=== PATIENT | male | born 1970 | race Caucasian/White ===

== ENCOUNTER 2016-10-19 16:38 | Inpatient (IN) | payer OTHER ==
[~2016-10-19] VITALS: Ht 177.8 cm; Wt 105.4 kg
[~2016-10-19 16:38] MED LIST: ATORVASTATIN CA40 MG PO; COQ1050 MG PO; IMODIUM A-D2 MG PO; NEXIUM20 M1 PO
[2016-10-22] VITALS (9 sets, daily range): BP systolic 132–148; BP diastolic 74–90
--- NOTE | 2016-10-22 13:55 | OPERATIVE REPORT ---
DATE OF SURGERY: 10/22/2016 SURGEON: Ector Blackwell III, MD CHEESEMAKING LABORER: Dr. Singh PREOPERATIVE DIAGNOSIS: 1. Eroded Lap-Band POSTOPERATIVE DIAGNOSIS: 1. Eroded Lap-Band PROCEDURE PERFORMED: 1. Laparoscopic removal of eroded Lap-Band and closure of gastrotomy x2 ANESTHESIA: General endotracheal. INDICATIONS: The patient is a 46-year-old male who approximately 10 years ago underwent a laparoscopic Lap-Band placement for bariatric surgery in [place]. In the last year or so, he started developing some symptoms consistent with severe reflux and heartburn. Upper GI endoscopy revealed eroded band within the gastric lumen, unable to remove endoscopically. He was scheduled for removal of the band laparoscopically. SURGICAL FINDINGS: The Silastic tubing was traced to the omentum, where it tunneled beneath the omentum and posteriorly and to the left of the stomach. It appeared that the upper portion of the stomach had been folded up over the band itself and was firmly adherent to the diaphragm and the posteroinferior lobe of the left lobe of the liver. It appeared also that there were 2 gastrotomy sites, secondary to the erosion of the band: one right anteroposteriorly, the other one superiorly and in the left anterior. SURGICAL TECHNIQUE: The patient was brought to the operating room and placed in the dorsal supine position, where he underwent general endotracheal anesthesia by the anesthesiology department. After proper anesthesia had taken effect, a Faustin catheter was placed to decompress the bladder. An orogastric tube was placed to decompress the stomach. The patient was placed in low lithotomy position. His abdomen prepped and draped in a sterile fashion. A supraumbilical incision was made and carried down through skin and subcutaneous tissue. A Veress needle was inserted through this site, into the abdominal cavity, and after ascertaining its appropriate position with suction irrigation, pneumoperitoneum obtained using CO2 insufflation to approximately 14 -15 mmHg pressure. Once this pressure was reached, the Veress needle was removed and replaced with a 10 mm trocar. The trocar was removed, leaving the sleeve behind, through which a laparoscopic video camera was introduced into the abdominal cavity. Under direct visualization, a self-retaining liver retractor was placed in the subxiphoid region. It entered the abdominal cavity under direct visualization. It was placed beneath the left lobe of the liver and the left lobe of the liver was retracted cephalad. Under direct visualization, a separate 10 mm trocar was placed in the left lateral anterior abdominal wall. Two 10 mm trocars were placed in the epigastric region, approximately 1 handbreadth apart. Each entered the abdominal cavity under direct visualization. The trocars were removed, leaving the sleeves behind, through which laparoscopic instrumentation was introduced in the abdominal cavity. The Silastic tubing was identified and traced to the portion of the gastrocolic ligament. This was traced up cephalad using the Thunderbeat. We were able to identify eventually the eroded band and the buckle. In attempting to mobilize the stomach, we were able to identify the band that had eroded through on the right as well, along the upper portion of the lesser curvature. This was firmly adherent to the diaphragm, probably secondary to earlier rolling of the stomach to protect the band. Our attention was turned to the buckle, which were able to identify. The buckle was cut and the Lap-Band transected, and the Lap-Band was withdrawn from the gastric lumen intact. The 2 sites of the gastrotomy were closed using [id number] Polysorb suture, using the EndoStitch and intracorporeal knot tying. Once both gastrotomies were closed, the orogastric tube was removed and replaced with a nasogastric tube. An upper GI endoscope was then passed down the patient's posterior pharynx and followed the tubing down into the abdomen. No gross evidence of leak was encountered. The scope was withdrawn. The omentum was brought up over our repair site and secured to the upper portion of the stomach and the diaphragm using the EndoStitch, using extracorporeal knot tying, doing a modified Lul patch over our suture line. The band and tubing were removed through one of our port sites, in the right upper quadrant, and handed off the field. Hemostasis was assured. The pneumoperitoneum was released. All trocars were removed from the abdominal cavity and all trocar sites approximated using 4-0 subdermal Polysorb and Steri-Strips. The port site was infiltrated using local anesthetic. A curvilinear incision was made, carried down through skin and subcutaneous tissue. This was dissected down in the subcutaneous tissue. The capsule incised. The port reservoir was identified and removed and handed off the field. The wound was irrigated. Hemostasis assured. The skin approximated using running 4-0 subdermal Polysorb and Steri-Strips. A sterile pressure occlusive dressing was placed over each site. The patient tolerated the procedure well. The patient was extubated and transferred to the recovery room in stable condition. There were no intraoperative or anesthetic complications.
[2016-10-23] VITALS (10 sets, daily range): BP systolic 137–156; BP diastolic 20–95
--- NOTE | 2016-10-23 07:28 | DIAGNOSTIC IMAGING REPORT ---
PROCEDURE: XR ABDOMEN 1 VIEW INDICATION: POST OP LAPROSCOPIC REMOVAL ERODED LAP BAND TECHNIQUE: AP supine view. COMPARISON: None. FINDINGS: Bowel gas pattern is normal. NG tube in place. No masses, free air or unusual calcifications. Cholecystectomy. Small left basilar infiltrate/atelectasis. Osseous structures are unremarkable. IMPRESSION: 1. NG tube in satisfactory position 2. Nonspecific bowel gas pattern 3. Small left basilar infiltrate/atelectasis
--- NOTE | 2016-10-23 14:34 | DIAGNOSTIC IMAGING REPORT ---
PROCEDURE: CT ABD/PELVIS WITH CONTRAST CLINICAL INDICATION: Lab erosion, follow-up TECHNIQUE: 125 ml of Isovue 300 were injected intravenously and axial images were obtained of the entire abdomen and pelvis with sagittal and coronal reformations. 180 ml of gastrographin via the NG tube. COMPARISON: Upright abdomen 10/23/2016 FINDINGS: ABDOMEN: NG tube in satisfactory position with contrast in the stomach through the third portion of the duodenum, without evidence of a leak. There is wall thickening of the gastric cardia. There is subcutaneous air in the left lower quadrant and umbilicus corresponding to surgical ports. There is also midline subcutaneous air in the ventral wall. Small postoperative pneumoperitoneum and small fluid collection in both pericolic gutters and around the spleen. Cholecystectomy. Liver, pancreas, spleen, adrenal glands and kidneys are normal. Mild atherosclerosis of the aorta. Mild dilation of proximal small bowel suggestive of an ileus. Moderate left and mild right basilar consolidation with air bronchograms suggestive of pneumonia versus atelectasis. There is a small left pleural effusion. PELVIS: Appendix not visualized but no evidence of acute appendicitis. Fluid in the sigmoid colon. Normal prostate and bladder. Small amount of free fluid in the pelvis. No suspicious osseous lesions. IMPRESSION: 1. Marked gastric cardia wall thickening but no evidence of perforation 2. Small postop pneumoperitoneum and ascites 3. NG tube in satisfactory position 4. Cholecystectomy 5. Moderate left and mild right basilar pneumonia versus atelectasis with small left pleural effusion 6. Results discussed with Dr. Blackwell. All CT scans at this facility use dose modulation, iterative reconstruction, and/or weight-based dosing when appropriate to reduce radiation dose to as low as reasonably achievable.
--- NOTE | 2016-10-23 23:40 | DIAGNOSTIC IMAGING REPORT ---
PROCEDURE: XR CHEST 1 VIEW INDICATION: TACHYCARDIA TECHNIQUE: Portable AP view 11:17 p.m. COMPARISON: Abdomen 10/23/2016 FINDINGS: Poor inspiration. Moderate retrocardiac consolidation with progression. Small left pleural effusion. Right lung is clear. Heart and mediastinum are normal. Thorax is normal. IMPRESSION: 1. Significant progression of retrocardiac pneumonia/postoperative atelectasis 2. Small left pleural effusion 3. Results called to the floor
[2016-10-24 02:42] VITALS: BP 148/79
[2016-10-24 07:10] VITALS: BP 144/92
--- NOTE | 2016-10-24 08:12 | DIAGNOSTIC IMAGING REPORT ---
PROCEDURE: XR CHEST 2 VIEW INDICATION: Status post removal of laparoscopic gastric band. Decreased O2 sats. Follow-up effusion. TECHNIQUE: PA and lateral views. COMPARISON: Compared to chest x-ray and 10/23/2016. FINDINGS: Allowing for suboptimal inspiration, there has been no change in moderate left basilar atelectasis/consolidation/effusion. Right lung is clear. Heart and mediastinum are normal. IMPRESSION: 1. Suboptimal inspiration. 2. No change in moderate left basilar atelectasis/consolidation/effusion.
--- NOTE | 2016-10-24 08:37 | DIAGNOSTIC IMAGING REPORT ---
PROCEDURE: CTA THORAX WITH CONTRAST INDICATION: 2 days status post removal of laparoscopic gastric band. Chest pain and shortness of breath. Elevated D-dimer. TECHNIQUE: 90 ml of Isovue 370 was injected intravenously and axial images were obtained of the entire thorax with 3D sagittal and coronal MIP reconstructions. Preliminary report provided by Abbey Thomas MD ([facility]). COMPARISON: Compared CT abdomen and pelvis and chest x-ray studies (10/23/2016). FINDINGS: Allowing for suboptimal opacification of some of the peripheral vessels, there is no evidence of pulmonary embolus (although subtle emboli would be difficult to exclude). There is moderate atelectasis/consolidation the left lung base with a small to moderate left pleural effusion. There is mild right basilar atelectasis. Heart and mediastinum are normal. Thorax is normal. There are postoperative changes of the upper abdomen with gastric mucosal thickening, ascites, and free intraperitoneal air. IMPRESSION: 1. Moderate left basilar atelectasis/consolidation with small to moderate left pleural effusion. 2. Mild right basilar atelectasis. 3. Allowing for suboptimal opacification of peripheral vessels, there is no definite evidence of pulmonary embolus. 4. Findings discussed with Dr. Blackwell. All CT scans at this facility use dose modulation, iterative reconstruction, and/or weight-based dosing when appropriate to reduce radiation dose to as low as reasonably achievable.
--- NOTE | 2016-10-24 08:37 | DIAGNOSTIC IMAGING REPORT ---
PROCEDURE: CTA THORAX WITH CONTRAST INDICATION: 2 days status post removal of laparoscopic gastric band. Chest pain and shortness of breath. Elevated D-dimer. TECHNIQUE: 90 ml of Isovue 370 was injected intravenously and axial images were obtained of the entire thorax with 3D sagittal and coronal MIP reconstructions. Preliminary report provided by Abbey Thomas MD ([facility] [[email or web address] COMPARISON: Compared CT abdomen and pelvis and chest x-ray studies (10/23/2016). FINDINGS: Allowing for suboptimal opacification of some of the peripheral vessels, there is no evidence of pulmonary embolus (although subtle emboli would be difficult to exclude). There is moderate atelectasis/consolidation the left lung base with a small to moderate left pleural effusion. There is mild right basilar atelectasis. Heart and mediastinum are normal. Thorax is normal. There are postoperative changes of the upper abdomen with gastric mucosal thickening, ascites, and free intraperitoneal air. IMPRESSION: 1. Moderate left basilar atelectasis/consolidation with small to moderate left pleural effusion. 2. Mild right basilar atelectasis. 3. Allowing for suboptimal opacification of peripheral vessels, there is no definite evidence of pulmonary embolus. 4. Findings discussed with Dr. Blackwell. All CT scans at this facility use dose modulation, iterative reconstruction, and/or weight-based dosing when appropriate to reduce radiation dose to as low as reasonably achievable.
[2016-10-24 10:00] VITALS: BP 149/95
[2016-10-24 14:31] VITALS: BP 122/83
--- NOTE | 2016-10-24 17:56 | DIAGNOSTIC IMAGING REPORT ---
PROCEDURE: XR UPPER GI WITH GASTROGRAFIN INDICATION: Assess for gastric leak. Status post removal of the rotate gastric band. TECHNIQUE: Single contrast study. The patient ingested 180 ml of gastrographin. Fluoroscopy time, 2.3 minutes; 2385.65 mGy. 32 fluoroscopic images (including cinefluoroscopy). Dr. Blackwell in attendance. COMPARISON: Compared to CT thorax abdomen pelvis earlier today. FINDINGS: Confirmation of extravasation and leak of contrast material into a left upper quadrant fluid pocket. Gastric leak appears to originate just below the level of the prior gastric band is most likely lateral location. There is moderate narrowing of the esophagus and spasm at the gastroesophageal junction. The stomach is decompressed. Contrast flows into the small bowel. IMPRESSION: 1. Confirmation of gastric leak which most likely originates just below the level of prior gastric band and directed laterally. 2. Findings discussed with Dr. Blackwell.
[2016-10-24 18:01] VITALS: BP 132/87
--- NOTE | 2016-10-24 18:28 | Progress Note ---
Subjective General Note Date: October 24, 2016 Admission Date: October 22, 2016 Hospital Day: 3 PCP: [PCP] Status: Inpatient Advanced Directive: FULL CODE Room: 210-B Brief History: The patient is a 46-year-old white male with a significant past medical history of obesity with gastric band present developed an erosion of his gastric band requiring removal. The patient underwent removal of gastric band on October. Postoperatively the patient was noted to have findings of tachycardia, abdominal pain, and suspected pneumonia. Secondary to the above, the hospitalist service was consulted for management pneumonia and general medical management of the patient. For other history present illness, past medical history, family history, social history, review of systems, and admission physical examination please see the patient's history and physical examination and ER visit note in the patient's medical record. Subjective: The patient states she is feeling somewhat better today after IV fluid therapy and use of beta blockers. He has persistent upper abdominal pain. Denies significant shortness of breath but does have pain with deep inspiration. Patient requests: No specific Medications and Allergies Medications Current Medications Sig/Loc Start time Last Medication Dose Route Stop Time Status Admin Dextrose/Sodium 1,000 ML ASDIRECTED 10/24 1430 AC 10/24 Chloride IV 1511 Metoprolol Tartrate 5 MG Q3H PRN 10/24 1400 AC IV Piperacillin/ 50 ML Q6HR 10/24 1200 AC 10/24 Tazobactam/Dextrose IV 1750 Heparin Sodium 5,000 UNITS BID 10/24 0200 AC 10/24 (Porcine) SC 0839 Hydromorphone HCl 1 MG Q2H PRN 10/23 1545 AC 10/24 IV 1446 Hydromorphone HCl 2 MG Q2H PRN 10/23 1530 AC IV Benzocaine/Butamben/ See Dose PRN 10/22 1800 AC 10/22 Tetracaine HCl Insts (1) TOP 1853 Promethazine HCl See Dose Q4H PRN 10/22 1800 AC 10/23 Insts (2) IV 0923 Famotidine/Sodium 50 ML Q12HR 10/22 1200 AC 10/24 Chloride IV 0839 Metoclopramide HCl 10 MG Q6HR 10/22 1200 AC 10/24 IV 1750 Meperidine HCl See Dose Q1H PRN 10/22 1145 AC 10/23 Insts (3) IV 1445 Ondansetron HCl See Dose Q6H PRN 10/22 1145 AC 10/22 Insts (4) IV 1657 Dose Instructions: (1)Benzocaine/Butamben/Tetracaine HCl: SPRAY THROAT (2)Promethazine HCl: 12.5 - 25 MG (3)Meperidine HCl: 12.5 - 25 MG (4)Ondansetron HCl: 4 - 8 MG Allergies Coded Allergies: Codeine (10/22/16) Physical Exam Vital Signs / I&Os Vital Signs Date Time Temp Pulse Resp B/P Pulse O2 O2 Flow FiO2 Ox Delivery Rate 10/24 1801 98.4 149 20 132/87 97 Mask 6.0 10/24 1431 99.0 132 22 122/83 89 Room Air 10/24 1112 5.0 10/24 1032 120 10/24 1000 98.1 132 22 149/95 95 Mask 5.0 10/24 0858 Mask 5.0 10/24 0710 97.9 139 22 144/92 95 VentI-Mask 5.0 10/24 0258 6.0 10/24 0242 98.2 130 24 148/79 93 Mask 6.0 10/24 0152 Mask 6.0 10/23 2314 2.0 10/23 2240 98.1 138 24 154/95 92 Nasal 2.0 Cannula I&O 10/24 0000 10/23 1600 10/23 0800 Intake Total 1340 1350 Output Total 400 250 270 Balance -400 1090 1080 General Appearance Alert, Oriented X3, Cooperative, No acute distress HEENT Normal exam Lungs decreased breath sounds bilateral bases left greater than right. Pain with deep inspiration Cardiovascular Normal S1 and S2, Tachycardic Abdomen Bowel sounds hypoactive, tenderness of upper abdomen to palpation Extremities No cyanosis, No clubbing, No edema Neurological Grossly normal Psych/Mental Status Mental status normal, Mood normal LAB Results Laboratory Tests 10/24 10/24 10/24 10/24 1515 1429 1105 1105 Chemistry Plasma Sodium (136 - 145 mmol/L) 136 Plasma Potassium (3.5 - 5.1 mmol/L) 5.2 Plasma Chloride (98 - 107 mmol/L) 104 CO2 (Enzymatic) (21 - 32 mmol/L) 28 BUN (7 - 18 mg/dL) 16 Creatinine (0.6 - 1.3 mg/dL) 1.1 Est GFR ( Amer) (mL/min) >60 Est GFR (Non-Af Amer) (mL/min) >60 Glucose (70 - 110 mg/dL) 157 Lactic Acid (0.4 - 2.0 mmol/L) 1.2 Plasma Calcium (8.5 - 10.1 mg/dL) 8.6 Total Bilirubin (0.0 - 1.0 mg/dL) 1.1 AST (15 - 37 U/L) 80 ALT (12 - 78 U/L) 183 Alkaline Phosphatase (46 - 116 U/L) 67 Total Protein (6.4 - 8.2 g/dL) 6.4 Albumin (3.3 - 5.0 g/dL) 2.4 Procalcitonin (0 - 0.5 ng/mL) 2.0 Hematology WBC (4.5 - 11.5 K/uL) 10.8 RBC (4.50 - 5.90 M/uL) 5.78 Hgb (13.5 - 17.5 gm/dL) 17.0 Hct (41.0 - 53.0 %) 52.0 MCV (80 - 100 fL) 90 MCH (26 - 34 pg) 29 RDW (11.6 - 14.8 %) 14.0 Neut % (Auto) (50 - 75 %) 68 Lymph % (Auto) (25 - 40 %) 6 [place] % (Auto) (3 - 14 %) 4 Eos % (Auto) (0 - 4 %) 0 Baso % (Auto) (0 - 2 %) 0 Band Neutrophils % (0 - 8 %) 22 Metamyelocytes % (0 - 1 %) 0 Myelocytes (0 - 1 %) 0 Other Cell Type 0 Plt Count, EDTA (150 - 400 K/uL) 298 RBC Morphology . Anisocytosis (manual) 1+ PUBS MCHC (31 - 37 g/dL) 33 Urines Urine Color YELLOW Urine Appearance TURBID Urine pH (5.0 - 8.0) 5.5 Ur Specific [place] (1.010 - 1.030) >= 1.030 Urine Protein (NEGATIVE) 2+ Urine Ketones (NEGATIVE) TRACE Urine Blood (NEGATIVE) 2+ Urine Nitrite (NEGATIVE) NEGATIVE Urine Bilirubin (NEGATIVE) 1+ Ur Bilirubin Confirm (NEGATIVE) POSITIVE Urine Urobilinogen (0.2 - 1.0 EU/dL) 0.2 Ur Leukocyte Esterase (NEGATIVE) NEGATIVE Urine RBC (0 - 1 rbc/hpf) 5-10 Urine WBC (0 - 1 wbc/hpf) NONE SEEN Ur Epithelial Cells (0 - 5 EPI/hpf) NONE SEEN Urine Bacteria (NONE SEEN) NONE SEEN Urine Glucose (NEGATIVE) NEGATIVE Urine Comment CULT NOT INDICATED 10/23 2320 Coagulation D-Dimer, Quantitative (0.27 - 0.52 ug/mLFEU) 3.18 Assessment and Plan Problem List 1. Pneumonia Status Acute Onset Date Unknown Plan -Patient with x-ray findings of pneumonia -Elevated Procalcitonin -WBC with left shift/immature cells -Zosyn 3.375 g IV every 6 hours -Monitor 2. Gastric band erosion Status Acute Onset Date Unknown Plan -Patient status post rotational gastric band with removal -Patient with significant abdominal pain. Case discussed with Dr. Blackwell. Patient will undergo CT of chest abdomen and pelvis and Gastrografin upper GI to assess for possible gastric esophageal leak. -Monitor -IV fluid therapy with multiple boluses secondary to tachycardia -Beta rajiv therapy -Pain control 3. Hypercholesterolemia Status Chronic Onset Date Unknown Plan -Place patient back on her outpatient medical regimen when taking well orally Current status: Fair, unstable Anticipated discharge date: Unknown Anticipated discharge placement: Home Patient care time: Time spent in chart review, patient interview, physical exam, CPOE, and care documentation: 45 minutes Visit to patient today: 2 Complexity of care: High E&M Codes Rounding: Inpt-High/[id number]
[2016-10-24 19:17] VITALS: BP 139/87
--- NOTE | 2016-10-24 19:36 | DIAGNOSTIC IMAGING REPORT ---
PROCEDURE: CT THORAX ABD PELVIS W/CONT INDICATION: Tachycardia. Abdominal pain. Status post removal of eroded gastric band. TECHNIQUE: 100 ml of Isovue 300 injected intravenously and axial images were obtained of the entire thorax, abdomen, and pelvis with sagittal and coronal reformations. COMPARISON: Compared to CTA thorax earlier today (10/24/2016) CT abdomen pelvis (10/23/2016). FINDINGS: THORAX: There is moderate left basilar consolidation/at of left assess with a moderate effusion. There is mild right basilar atelectasis. Heart and mediastinum are normal. Thorax is normal. ABDOMEN: There is a 15 cm x10 cm x 3 cm left subdiaphragmatic air and fluid collection. There is a small amount of air and fluid surrounding the spleen with a small amount of ascites. There is moderate free air. There is marked edema of the gastric fundus and upper body of the stomach. Cholecystectomy. Liver, spleen, pancreas, kidneys, and aorta are normal. Mildly dilated small bowel loops compatible with ileus. PELVIS: Moderate ascites. Faustin catheter decompressed urinary bladder. IMPRESSION: 1. Moderate left basilar atelectasis and pneumonia with moderate left pleural effusion. 2. Mild right basilar atelectasis. 3. Development of a large 15 cm x 10 cm x 4 cm of subdiaphragmatic air and fluid collection compatible with viscus perforation. While the exact source is difficult to discern, the overall appearance suggests this is most likely gastric in origin. 4. Associated fluid and air surrounding the spleen. 5. Associated edema and thickening of the gastric fundus and upper gastric body. 6. Small bowel ileus. 7. Small to moderate amount of ascites with moderate free intraperitoneal air (postoperative changes). 8. Findings discussed with Dr. Blackwell. All CT scans at this facility use dose modulation, iterative reconstruction, and/or weight-based dosing when appropriate to reduce radiation dose to as low as reasonably achievable.
[2016-10-25] VITALS (12 sets, daily range): BP systolic 127–154; BP diastolic 77–97
--- NOTE | 2016-10-25 00:07 | OPERATIVE REPORT ---
DATE OF SURGERY: 10/24/2016 SURGEON: Ector Blackwell III, MD FAMILY SUPPORT WORKER: Daryn Singh MD PREOPERATIVE DIAGNOSIS: 1. Gastric leak POSTOPERATIVE DIAGNOSIS: 1. Gastric leak PROCEDURES PERFORMED: 1. Diagnostic laparoscopy and drainage of gastric leak, upper gastrointestinal endoscopy and Lul patch ANESTHESIA: General endotracheal. ESTIMATED BLOOD LOSS: Minimal. FLUIDS: 2500 mL Lactated Ringer's. PATHOLOGY SPECIMEN: Sent to laboratory, none. URINE OUTPUT: 225 mL. INDICATIONS: The patient is a 46-year-old male who approximately 10 years ago had a lap band placed in [place]. In last year or so, he started developing symptoms consistent with reflux. Upper GI endoscopy following a barium swallow revealed a lap band that had eroded into the stomach. On 10/22/2016 he was taken to the operating room where he underwent uneventful removal of the lap band and closure of 2 large gastrotomy sites. Postoperative course: The patient was complaining of epigastric, left upper quadrant abdominal pain. Abdominal x-ray showed that his NG tube was in good position with no evidence of free air below the diaphragm. The patient later, on postoperative day 1, spiked a temperature to 101, became tachycardic. A white count was obtained, which showed a white count of 6.5 and electrolytes which were normal. A CT Gastrografin was reported by Radiology as no evidence of a leak. The patient's NG tube was therefore discontinued because of the discomfort it was causing the patient. The patient continued to be tachycardic throughout the previous evening, dropping his O2 sats. The patient underwent a D-dimer, which was elevated at 3.18 and a CTA, which was negative for pulmonary embolus. The patient had a pleural effusion and atelectasis of the left lower lobe. The patient stated that he felt somewhat better than yesterday, but thinks it may be related to a change in pain meds. The patient was noted to have bowel sounds. His breath sounds were decreased bilaterally. His abdomen was nondistended. His trocar sites were dry. A repeat CBC showed a white count of 10.8. His chemistries, sodium 138, potassium 4.9. The patient having been started on heparin the evening before. It was decided to repeat the CAT scan with Gastrografin on the patient. We were able to discern a loculated area of air in the left upper quadrant. This was followed by a Gastrografin upper GI series, which showed a leak high in the fundus of the stomach on the left, slightly posterolateral. He was scheduled for emergent surgery. SURGICAL FINDINGS: At surgery, patient was noted to have intense inflammatory reaction within the abdominal cavity as expected with some fibrinous exudate and bilious/ gastric drainage, located primarily in the left upper quadrant and along the left gutter. This was suctioned out. Adhesions, loculations in the left upper quadrant were broken up. Inspection revealed suspected gastric drainage high up by the diaphragm in the area of the cardia. Upper GI endoscopy revealed no evidence of a gastric disruption from within the stomach, although we could see air bubbles emanating high along the posterolateral cardia on the left. SURGICAL TECHNIQUE: The patient was brought to the operating room, placed in the dorsal supine position, where he underwent general endotracheal anesthesia by the anesthesiology department. After proper anesthesia had taken effect, patient was placed in low lithotomy position. His abdomen prepped using Betadine and draped in a sterile fashion. Through his previous supraumbilical trocar site another 10 mm trocar was passed into the abdominal cavity. A laparoscope was introduced in abdominal cavity. The patient's abdomen was insufflated to approximately 14-15 mmHg pressure. However, because of the amount of edema and inflammatory reaction, visualization was limited. The other remaining trocar sites placed previously at the first surgery were once again opened and trocar is placed through these sites into the abdominal cavity. Self-retaining liver retractor was placed beneath the left lobe of the liver and retracted cephalad. Adhesions, loculations to the left upper quadrant were broken down and the suspected gastric secretions were suctioned out. The left upper quadrant and left gutter were irrigated copiously with warm normal saline, antibiotic solution, irrigant suctioned out. The right gutter was suctioned out as well. Blunt dissection high up along the cardia and in the area of the diaphragm did not reveal a perforation. Dr. Singh at this point, placed an upper GI endoscope down the patient's posterior pharynx, into the esophagus under direct visualization and into the gastric lumen. Careful inspection of the gastric lumen did not reveal a gastric rent; however, we were able to identify an air leak at posterolateral aspect, high in the cardia, but we were never able to see the hole itself. This site was irrigated copiously. We could not put a stitch in this area because of its location and because of the intense inflammatory response. We felt this site could not hold a stitch anyway. Therefore, a portion of omentum was placed high up in this area, occluding the air leak and tying it down with extracorporeal knot of 0 Polysorb suture, securing it to what may have been a remnant of the left crura and the omentum itself. Two 10 mm Mendez-Carrillo drains were placed, one along the right subhepatic /lesser curvature on the stomach high up on the cardia and another was placed along the cardia and along the upper portion of the fundus on the left and along the subdiaphragmatic region. Each one of these were brought out through previous trocar sites. The pneumoperitoneum released after irrigating the abdomen copiously with warm normal saline, antibiotic solution once again. All trocars were removed from the abdominal cavity and all drains were sutured in place using 3-0 nylon. Each trocar site was approximated using 4-0 subdermal Polysorb and Steri-Strips. The drains, sponges were placed. The patient tolerated procedure well and was extubated, transferred to the recovery room in stable condition.
--- NOTE | 2016-10-25 00:07 | OPERATIVE REPORT ---
DATE OF SURGERY: 10/24/2016 SURGEON: Daryn Singh MD PREOPERATIVE DIAGNOSIS: 1. Eroded laparoscopic band with leak POSTOPERATIVE DIAGNOSIS: 1. Eroded laparoscopic band with leak PROCEDURE PERFORMED: 1. Upper gastrointestinal endoscopy (EGD) ANESTHESIA: General. INDICATIONS: The patient is a 46-year-old man who recently had a laparoscopic band removed. He demonstrated some leakage from the band site despite suturing it and was brought back to surgery for cleaning out the area. I was asked to perform upper GI endoscopy to assist with the procedure. Dr. Blackwell performed remainder of the procedure, which was the laparoscopic portion. SURGICAL TECHNIQUE: Once the laparoscopic instruments were all set in position, I placed the upper GI endoscope down the esophagus into the stomach. With insufflation we were able to demonstrate an air leak posterior and high up to the left. It was not possible to gain good access to suture from the outside and on the inside I tried to visualize the actual opening to see if we could place a few endoscopic clips from the inside, however, it was not possible to determine the location of the leak as the tissues were quite swollen and edematous and did not lend itself to proper access. A nasogastric tube was placed in the stomach and carefully positioned, with the assistance of the upper GI endoscope, which was then withdrawn, ensuring that the nasogastric tube stayed in place. The patient will subsequently undergo placement of drainage tubes by Dr. Blackwell at the conclusion of the procedure.
--- NOTE | 2016-10-25 08:21 | DIAGNOSTIC IMAGING REPORT ---
PROCEDURE: XR ABDOMEN 1 VIEW INDICATION: POST OP DRAINAGE OF GASTRIC LEAK TECHNIQUE: Single view upright abdomen. COMPARISON: 10/23/2016 FINDINGS: Nasogastric tube has been advanced and the tip is probably post pyloric. There are two flat ZEYAD drains in the left upper quadrant. Surgical clips of cholecystectomy present. Elevation of the left hemidiaphragm with dense opacity at the left lung base. No significant free intraperitoneal air. Air fluid levels in left upper quadrant bowel loops. Enteric contrast seen in more distal bowel loops. Organ shadows grossly normal. No unusual densities or foreign bodies. IMPRESSION: 1. Expected post surgical changes after exploratory surgery and left upper quadrant washout. 2. Dense left base atelectasis. 3. Postoperative ileus.
--- NOTE | 2016-10-25 11:45 | DIAGNOSTIC IMAGING REPORT ---
PROCEDURE: XR CHEST 1 VIEW INDICATION: PICC LINE PLACEMENT TECHNIQUE: Portable AP view 11:22 a.m. COMPARISON: Chest 10/24 2016 FINDINGS: There is a PICC line on the right. The tip is near the right atrium. Allowing for suboptimal inspiration, there has been no change in moderate left basilar atelectasis/consolidation/effusion. Right lung is clear. Heart and mediastinum are normal. IMPRESSION: 1. Suboptimal inspiration. 2. No change in moderate left basilar atelectasis/consolidation/effusion. 3. PICC line placement called to the floor.
--- NOTE | 2016-10-25 14:05 | Progress Note ---
Subjective General 46-year-old white male with obesity admitted for removal of gastric band due to erosion. The patient underwent removal of gastric band on October 22, 2016. Postoperatively the patient was noted to have findings of tachycardia, abdominal pain, and suspected pneumonia. Hospitalist was consulted. Further w/u showed leakage from stomach into peritoneum and patient was taken back to surgery for gastric repair and for drain placement. Dr. Blackwell is managing surgical aspects of care. Hospitalist has turned patient over to [place] for medical care. Tachycardia has improved with medication and second surgery. Pneumonia is under treatment. Patient reports good pain control post op. Nausea is controlled with meds. He denies sob, fever, sweats. He is pleased with Dr. Blackwell's care. Physical Exam Vital Signs / I&Os Vital Signs Date Time Temp Pulse Resp B/P Pulse O2 O2 Flow FiO2 Ox Delivery Rate 10/25 1329 123 20 95 5.0 10/25 1016 114 30 94 5.0 10/25 1015 98.1 113 26 145/88 94 Nasal 5.0 Cannula 10/25 0913 Nasal 2.0 Cannula 10/25 0811 111 19 95 2.0 10/25 0632 127/80 10/25 0630 98.8 127 20 93 Nasal 5.0 Cannula 10/25 0516 114 24 137/79 93 5.0 10/25 0423 5.0 10/25 0256 98.4 127 22 135/79 93 Nasal 5.0 Cannula 10/25 0220 98.2 127 26 148/89 92 Nasal 5.0 Cannula 10/25 0146 98.2 123 27 142/97 91 Nasal 5.0 Cannula 10/25 0135 126 22 92 5.0 10/25 0134 98.8 120 22 133/92 92 Mask 9.0 10/25 0119 98.8 122 24 146/94 94 Mask 9.0 10/25 0101 98.8 124 24 142/92 93 Mask 9.0 10/25 0046 98.8 123 20 129/69 94 Mask 9.0 10/25 0035 122 22 124/68 90 Mask 9.0 10/25 0030 121 25 124/68 92 Mask 9.0 10/25 0025 123 22 119/65 92 Mask 9.0 10/25 0020 116 21 125/67 93 Mask 9.0 10/25 0015 118 23 125/81 92 Mask 9.0 10/25 0010 117 29 144/89 92 Mask 9.0 10/25 0005 116 27 144/89 94 Mask 9.0 10/25 0000 117 27 134/84 94 Mask 9.0 10/24 2355 115 28 124/86 93 Mask 9.0 10/24 2350 115 28 121/86 93 Mask 9.0 10/24 2345 115 28 120/73 92 Mask 9.0 10/24 2340 116 28 125/72 92 15.0 Non-Rebreather Mask 10/24 2335 115 27 117/67 92 15.0 Non-Rebreather Mask 10/24 2330 118 26 137/68 92 15.0 Non-Rebreather Mask 10/24 2325 115 26 117/67 94 15.0 Non-Rebreather Mask 10/24 2320 118 28 128/82 95 15.0 Non-Rebreather Mask 10/24 2315 98.8 117 29 123/80 89 15.0 Non-Rebreather Mask 10/24 1925 5.0 10/24 1917 98.4 120 20 139/87 98 Mask 5.0 10/24 1801 98.4 149 20 132/87 97 Mask 6.0 10/24 1630 Mask 5.0 10/24 1431 99.0 132 22 122/83 89 Room Air I&O 10/24 0800 10/24 1600 10/25 0000 Intake Total 1314 1771 5755 Output Total 3931 979 7670 Balance -311 1146 395 General Appearance Alert, Oriented X3, Mild distress Lungs Clear to auscultation Cardiovascular Regular rate and rhythm Abdomen Soft, Mild diffuse tenderness post. Drains are in place x 2. Extremities No edema Skin No Rashes LAB Results Laboratory Tests 10/24 10/24 10/24 10/25 1429 1515 1855 0530 Chemistry Plasma Sodium (136 - 145 mmol/L) 138 141 Plasma Potassium (3.5 - 5.1 mmol/L) 4.9 4.6 Plasma Chloride (98 - 107 mmol/L) 104 103 CO2 (Enzymatic) (21 - 32 mmol/L) 26 29 BUN (7 - 18 mg/dL) 17 16 Creatinine (0.6 - 1.3 mg/dL) 1.2 1.2 Est GFR ( Amer) (mL/min) >60 >60 Est GFR (Non-Af Amer) (mL/min) >60 >60 Glucose (70 - 110 mg/dL) 180 152 Lactic Acid (0.4 - 2.0 mmol/L) 1.2 Plasma Calcium (8.5 - 10.1 mg/dL) 8.8 8.1 Hematology WBC (4.5 - 11.5 K/uL) 11.0 10.7 RBC (4.50 - 5.90 M/uL) 5.84 5.06 Hgb (13.5 - 17.5 gm/dL) 17.2 14.9 Hct (41.0 - 53.0 %) 52.5 45.3 MCV (80 - 100 fL) 90 90 MCH (26 - 34 pg) 30 29 RDW (11.6 - 14.8 %) 13.7 14.1 Neut % (Auto) (50 - 75 %) 93.7 91.5 Lymph % (Auto) (25 - 40 %) 3.4 3.7 [place] % (Auto) (3 - 14 %) 2.8 4.8 Eos % (Auto) (0 - 4 %) 0 0 Baso % (Auto) (0 - 2 %) 0.1 0 Plt Count, EDTA (150 - 400 K/uL) 303 288 PUBS MCHC (31 - 37 g/dL) 33 33 Urines Urine Color YELLOW Urine Appearance TURBID Urine pH (5.0 - 8.0) 5.5 Ur Specific [place] (1.010 - 1.030) >= 1.030 Urine Protein (NEGATIVE) 2+ Urine Ketones (NEGATIVE) TRACE Urine Blood (NEGATIVE) 2+ Urine Nitrite (NEGATIVE) NEGATIVE Urine Bilirubin (NEGATIVE) 1+ Ur Bilirubin Confirm (NEGATIVE) POSITIVE Urine Urobilinogen (0.2 - 1.0 EU/dL) 0.2 Ur Leukocyte Esterase (NEGATIVE) NEGATIVE Urine RBC (0 - 1 rbc/hpf) 5-10 Urine WBC (0 - 1 wbc/hpf) NONE SEEN Ur Epithelial Cells (0 - 5 EPI/hpf) NONE SEEN Urine Bacteria (NONE SEEN) NONE SEEN Urine Glucose (NEGATIVE) NEGATIVE Urine Comment CULT NOT INDICATED Assessment and Plan Problem List 1. Peritonitis Plan Improved with drains/surgical repair. Will continue to monitor. 2. Pneumonia Status Acute Onset Date Unknown Plan On appropirate antibiotics. Will monitor for improvement.
[2016-10-26] VITALS (8 sets, daily range): BP systolic 134–167; BP diastolic 76–94
--- NOTE | 2016-10-26 08:02 | Progress Note ---
Subjective General Brief History: The patient is a 46-year-old white male with a significant past medical history of obesity with gastric band present developed an erosion of his gastric band requiring removal. The patient underwent removal of gastric band on October. Postoperatively the patient was noted to have findings of tachycardia, abdominal pain, and suspected pneumonia. Secondary to the above, the hospitalist service was consulted for management pneumonia and general medical management of the patient. Patient is now improving with IV Abx and has had drainage of peritoneal fluid. Overall feeling a little better, more talkative and up a little more. Physical Exam Vital Signs / I&Os Vital Signs Date Time Temp Pulse Resp B/P Pulse O2 O2 Flow FiO2 Ox Delivery Rate 10/26 0645 98.4 114 18 140/85 93 Nasal 5.0 Cannula 10/26 0510 107 16 95 5.0 10/26 0333 99.3 116 20 139/76 94 Nasal 5.0 Cannula 10/26 0307 121 22 94 5.0 10/26 0116 120 18 94 5.0 10/25 2317 Nasal 5.0 Cannula 10/25 2301 115 20 96 5.0 10/25 2300 98.6 116 16 154/79 95 Nasal 5.0 Cannula 10/25 2101 115 18 95 5.0 10/25 1933 117 22 94 5.0 10/25 1830 97.9 117 18 141/85 95 Nasal 5.0 Cannula 10/25 1645 125 20 95 5.0 10/25 1453 120 20 94 5.0 10/25 1441 98.2 119 20 132/77 92 Nasal 5.0 Cannula 10/25 1329 123 20 95 5.0 10/25 1016 114 30 94 5.0 10/25 1015 98.1 113 26 145/88 94 Nasal 5.0 Cannula 10/25 0913 Nasal 2.0 Cannula 10/25 0811 111 19 95 2.0 I&O 10/26 0000 10/25 1600 10/25 0800 Intake Total 1329 0 510 Output Total 860 705 520 Balance 469 -705 -10 General Appearance Alert, Cooperative HEENT Normal exam Lungs Clear to auscultation, Normal air movement Cardiovascular Regular rate and rhythm, No murmurs, gallops, rubs Abdomen Normal bowel sounds, Soft Extremities No edema LAB Results Laboratory Tests 10/26 10/26 10/26 10/25 10/25 0525 0525 0525 1442 1442 Chemistry Plasma Sodium (136 - 145 mmol/L) 143 141 Plasma Potassium (3.5 - 5.1 mmol/L) 3.9 3.7 Plasma Chloride (98 - 107 mmol/L) 106 105 CO2 (Enzymatic) (21 - 32 mmol/L) 29 30 BUN (7 - 18 mg/dL) 17 17 Creatinine (0.6 - 1.3 mg/dL) 0.9 1.0 Est GFR ( Amer) (mL/min) >60 >60 Est GFR (Non-Af Amer) (mL/min) >60 >60 Glucose (70 - 110 mg/dL) 183 176 Plasma Calcium (8.5 - 10.1 mg/dL) 7.7 8.1 Phosphorus Cancelled Plasma Magnesium Cancelled Total Bilirubin (0.0 - 1.0 mg/dL) 0.4 AST (15 - 37 U/L) 26 ALT (12 - 78 U/L) 66 Alkaline Phosphatase (46 - 116 U/L) 49 Total Protein (6.4 - 8.2 g/dL) 5.7 Albumin (3.3 - 5.0 g/dL) 2.0 Prealbumin Pending Lipase (73 - 393 U/L) 58 Hematology WBC (4.5 - 11.5 K/uL) 9.8 RBC (4.50 - 5.90 M/uL) 3.97 Hgb (13.5 - 17.5 gm/dL) 11.7 Hct (41.0 - 53.0 %) 35.7 MCV (80 - 100 fL) 90 MCH (26 - 34 pg) 30 RDW (11.6 - 14.8 %) 13.7 Neut % (Auto) (50 - 75 %) 87.7 Lymph % (Auto) (25 - 40 %) 4.8 [place] % (Auto) (3 - 14 %) 7.2 Eos % (Auto) (0 - 4 %) 0.2 Baso % (Auto) (0 - 2 %) 0.1 Plt Count, EDTA (150 - 400 K/uL) 259 PUBS MCHC (31 - 37 g/dL) 33 Assessment and Plan Problem List 1. Gastric band erosion Status Acute Onset Date Unknown Plan Post removal and doing better 2. Peritonitis Plan Improving at this time. 3. Pneumonia Status Acute Onset Date Unknown Plan Improving symptoms is on abx and reactive likely related to the peritonitis
[2016-10-27 02:00] VITALS: BP 143/81
[2016-10-27 07:10] VITALS: BP 146/85
--- NOTE | 2016-10-27 08:55 | Progress Note ---
Subjective General 6-year-old white male with obesity admitted for removal of gastric band due to erosion. The patient underwent removal of gastric band on October 22, 2016. Postoperatively the patient was noted to have findings of tachycardia, abdominal pain, and suspected pneumonia. Further w/u showed leakage from stomach into peritoneum and patient was taken back to surgery for gastric repair and for drain placement. Dr. Blackwell is managing surgical aspects of care. dURING NIGHT PATIENT HAD persistent tachycardia not improved with metoprolol. Pneumonia is under treatment. Started passing gas and watery stool last night. Was given ativan for sleep as he has slept poorly. He had vivid dreams and woke anxious. He does not want more ativan. Constitutional Denies: Fever, Chills, Sweats. Respiratory Denies: Cough, Wheezing, Sputum. Physical Exam Vital Signs / I&Os Vital Signs Date Time Temp Pulse Resp B/P Pulse O2 O2 Flow FiO2 Ox Delivery Rate 10/27 0710 98.6 119 21 146/85 96 Nasal 3.5 Cannula 10/27 0603 120 20 95 3.5 10/27 0439 122 10/27 0353 97 Nasal 3.5 Cannula 10/27 0306 121 27 94 5.0 10/27 0200 98.1 115 18 143/81 92 Nasal 0.0 Cannula 10/27 0134 120 23 92 5.0 10/26 2335 115 21 96 5.0 10/26 2315 97.9 115 18 134/83 96 Nasal 5.0 Cannula 10/26 2145 118 10/26 2010 5.0 10/26 1924 99.0 120 17 147/84 94 Nasal 5.0 Cannula 10/26 1923 119 19 99 5.0 10/26 1818 118 22 95 5.0 10/26 1708 121 20 95 4.0 10/26 1442 97.9 119 20 167/94 96 Nasal 5.0 Cannula 10/26 1413 129 21 96 4.0 10/26 1210 125 18 96 4.0 10/26 1129 98.4 117 18 155/91 96 Nasal 5.0 Cannula 10/26 1015 98.1 123 18 164/92 95 Nasal 5.0 Cannula 10/26 0930 Nasal 5.0 Cannula I&O 10/26 0800 10/26 1600 10/27 0000 Intake Total 2722 601 1131 Output Total 512 028 8260 Balance 2132 -39 -189 General Appearance Alert, Oriented X3, Cooperative, No acute distress Lungs Clear to auscultation Cardiovascular Regular rate and rhythm Abdomen Mild diffuse tenderness. Drains in place with serous fluid. Absent bowel sounds on my exam. Extremities No edema Skin No Rashes Assessment and Plan Problem List 1. Peritonitis Plan Improving post op on antibiotics with drains functioning. 2. Pneumonia Status Acute Onset Date Unknown Plan Improving on antibiotics. 3. Anxiety Plan Counselled. Will repeat labs and will avoid ativan. 4. Tachycardia Plan Increase metoprolol.
[2016-10-27 11:09] VITALS: BP 152/91
--- NOTE | 2016-10-27 11:35 | Progress Note ---
Subjective General Pt. without new complaints except thirst. His urine looked concentrated and Dr. Jasso has ordered a fluid bolus. He is on TPN dosed by pharmacy. There is a report of liquids stools-this may be clearing of succus but C Diff possible, though no abnormal odor was noted. Physical Exam Vital Signs / I&Os Vital Signs Date Time Temp Pulse Resp B/P Pulse O2 O2 Flow FiO2 Ox Delivery Rate 10/27 1109 98.1 121 21 152/91 95 Nasal 3.5 Cannula 10/27 0710 98.6 119 21 146/85 96 Nasal 3.5 Cannula 10/27 0603 120 20 95 3.5 10/27 0439 122 10/27 0353 97 Nasal 3.5 Cannula 10/27 0306 121 27 94 5.0 10/27 0200 98.1 115 18 143/81 92 Nasal 0.0 Cannula 10/27 0134 120 23 92 5.0 10/26 2335 115 21 96 5.0 10/26 2315 97.9 115 18 134/83 96 Nasal 5.0 Cannula 10/26 2145 118 10/26 2010 5.0 10/26 1924 99.0 120 17 147/84 94 Nasal 5.0 Cannula 10/26 1923 119 19 99 5.0 10/26 1818 118 22 95 5.0 10/26 1708 121 20 95 4.0 10/26 1442 97.9 119 20 167/94 96 Nasal 5.0 Cannula 10/26 1413 129 21 96 4.0 10/26 1210 125 18 96 4.0 I&O 10/26 0800 10/26 1600 10/27 0000 Intake Total 2722 601 1131 Output Total 732 809 2842 Balance 2132 -39 -189 General Appearance Alert, Oriented X3, Cooperative, No acute distress Abdomen Normal exam, Normal bowel sounds, Soft, ZEYAD drains with serous output only and NG is producing most of the the output which is bilious. Assessment and Plan Problem List 1. Gastric band erosion Status Acute Onset Date Unknown 2. Peritonitis 3. Diarrhea Plan check c diff screen
[2016-10-27 14:52] VITALS: BP 137/86
[2016-10-27 19:27] VITALS: BP 144/74
[2016-10-27 23:18] VITALS: BP 143/90
[2016-10-28 02:33] VITALS: BP 144/80
[2016-10-28 06:59] VITALS: BP 129/69
--- NOTE | 2016-10-28 08:36 | Progress Note ---
Subjective General 46-year-old white male with obesity admitted for removal of gastric band due to erosion. The patient underwent removal of gastric band on October 22, 2016. Postoperatively the patient was noted to have findings of tachycardia, abdominal pain, and suspected pneumonia. Further w/u showed leakage from stomach into peritoneum and patient was taken back to surgery for gastric repair and for drain placement. Dr. Blackwell/Francisco are managing surgical care. Pt is frustrated by watery diarrhea "every 15 minutes all night long." Pain controlled but very frustrated and wanting to go home. asks that we try another sedative. Pt agrees to further anti anxiety meds. Physical Exam Vital Signs / I&Os Vital Signs Date Time Temp Pulse Resp B/P Pulse O2 O2 Flow FiO2 Ox Delivery Rate 10/28 0659 98.2 110 21 129/69 93 Nasal 2.0 Cannula 10/28 0233 97.5 104 18 144/80 94 Room Air 2.0 10/27 2318 97.7 113 18 143/90 95 Room Air 2.0 10/27 2100 Room Air 2.0 10/27 1934 2.0 10/27 1927 98.4 119 18 144/74 91 Room Air 10/27 1452 98.8 117 20 137/86 93 Room Air 10/27 1109 98.1 121 21 152/91 95 Nasal 3.5 Cannula I&O 10/27 0800 10/27 1600 10/28 0000 Intake Total 0 698 1188 Output Total 885 2035 2085 Balance -885 -1337 -897 General Appearance Alert, Oriented X3, Moderate distress Lungs Clear to auscultation Cardiovascular Regular rate and rhythm Abdomen Drains in place. Scant bowel sounds. NG in place. Extremities No edema Skin No Rashes LAB Results Laboratory Tests 10/27 10/27 10/28 0931 1145 0546 Chemistry Plasma Sodium (136 - 145 mmol/L) 139 138 Plasma Potassium (3.5 - 5.1 mmol/L) 3.6 3.7 Plasma Chloride (98 - 107 mmol/L) 104 103 CO2 (Enzymatic) (21 - 32 mmol/L) 29 27 BUN (7 - 18 mg/dL) 15 15 Creatinine (0.6 - 1.3 mg/dL) 0.9 0.9 Est GFR ( Amer) (mL/min) >60 >60 Est GFR (Non-Af Amer) (mL/min) >60 >60 Glucose (70 - 110 mg/dL) 137 173 Plasma Calcium (8.5 - 10.1 mg/dL) 8.4 8.3 Plasma Magnesium (1.8 - 2.4 mg/dL) 2.1 Total Bilirubin (0.0 - 1.0 mg/dL) 0.5 0.7 AST (15 - 37 U/L) 23 28 ALT (12 - 78 U/L) 52 49 Alkaline Phosphatase (46 - 116 U/L) 77 107 Total Protein (6.4 - 8.2 g/dL) 6.3 5.9 Albumin (3.3 - 5.0 g/dL) 2.1 2.2 Hematology WBC (4.5 - 11.5 K/uL) 12.9 23.0 RBC (4.50 - 5.90 M/uL) 4.34 4.72 Hgb (13.5 - 17.5 gm/dL) 12.6 13.6 Hct (41.0 - 53.0 %) 38.7 42.5 MCV (80 - 100 fL) 89 90 MCH (26 - 34 pg) 29 29 RDW (11.6 - 14.8 %) 13.4 13.9 Neut % (Auto) (50 - 75 %) 86.5 37 Lymph % (Auto) (25 - 40 %) 3.4 17 [place] % (Auto) (3 - 14 %) 9.5 5 Eos % (Auto) (0 - 4 %) 0.6 2 Baso % (Auto) (0 - 2 %) 0 0 Band Neutrophils % (0 - 8 %) 39 Metamyelocytes % (0 - 1 %) 0 Myelocytes (0 - 1 %) 0 Other Cell Type FEW PLATELET CLUMPS Plt Count, EDTA (150 - 400 K/uL) 289 297 PUBS MCHC (31 - 37 g/dL) 33 32 Serology C. difficile Ag & Toxin Pending Microbiology Date/Time Procedure - Status Source Growth 10/27 1145 Clostridium difficile Toxin A & B - COMP STOOL 10/27 1145 Specimen Source - COMP STOOL Assessment and Plan Problem List 1. Gastric band erosion Status Acute Onset Date Unknown Plan S/P surgery. Increased WBC and bands noted today. 2. Peritonitis Plan Increased WBC and left shift. Drains in place. 3. Anxiety Plan Will initiate valium for control. 4. Diarrhea Plan Consider immodium or lomotil if Dr. Singh agrees.
[2016-10-28 10:34] VITALS: BP 136/60
--- NOTE | 2016-10-28 13:06 | Progress Note ---
Subjective General Pt. has watery stools, no blood. c diff was negative. Otherwise no new complaints. Physical Exam Vital Signs / I&Os Vital Signs Date Time Temp Pulse Resp B/P Pulse O2 O2 Flow FiO2 Ox Delivery Rate 10/28 1034 97.5 76 21 136/60 95 Room Air 2.0 10/28 0959 93 Room Air 10/28 0659 98.2 110 21 129/69 93 Nasal 2.0 Cannula 10/28 0233 97.5 104 18 144/80 94 Room Air 2.0 10/27 2318 97.7 113 18 143/90 95 Room Air 2.0 10/27 2100 Room Air 2.0 10/27 1934 2.0 10/27 1927 98.4 119 18 144/74 91 Room Air 10/27 1452 98.8 117 20 137/86 93 Room Air I&O 10/27 0800 10/27 1600 10/28 0000 Intake Total 0 698 1188 Output Total 885 2035 2085 Balance -885 -1337 -897 General Appearance Alert, Oriented X3, Cooperative, No acute distress Abdomen Normal exam (he is non distended, wounds ), Normal bowel sounds (without erythema or drainage), Soft, No tenderness Assessment and Plan Problem List 1. Diarrhea Plan will check for other infectious causes but seem pretty unlikely. His NG is bilious while his ZEYAD drains are serous-decompression seems to be working. The cause of his leukocytosis is unclear but will continue to watch and decompress and support with TPN Will put a little lactobacillous down.
[2016-10-28 15:20] VITALS: BP 129/82
[2016-10-28 19:25] VITALS: BP 141/91
[2016-10-28 22:00] VITALS: BP 154/77
[2016-10-29 02:10] VITALS: BP 125/85
[2016-10-29 07:14] VITALS: BP 143/85
--- NOTE | 2016-10-29 09:30 | Progress Note ---
Subjective General 46-year-old white male with obesity admitted for removal of gastric band due to erosion. The patient underwent removal of gastric band on October 22, 2016. Postoperatively the patient was noted to have findings of tachycardia, abdominal pain, and suspected pneumonia. Further w/u showed leakage from stomach into peritoneum and patient was taken back to surgery for gastric repair and for drain placement. Dr. Blackwell/Francisco are managing surgical care. Persistent watery diarrhea. Pt felt too sedated with valium and does not want any sedative at this time. Feels he is stressed and depressed because of the frequent diarrhea and sleep deprivation. Denies pain nausea sob. Physical Exam Vital Signs / I&Os Vital Signs Date Time Temp Pulse Resp B/P Pulse O2 O2 Flow FiO2 Ox Delivery Rate 10/29 0714 97.7 114 20 143/85 94 Room Air 10/29 0210 98.1 107 18 125/85 95 Room Air 10/29 0205 114 10/28 2200 98.4 112 20 154/77 93 Room Air 10/28 1940 Room Air 10/28 1925 97.5 113 20 141/91 94 Room Air 10/28 1520 97.5 110 20 129/82 94 Room Air 10/28 1034 97.5 76 21 136/60 95 Room Air 2.0 10/28 1000 Room Air 10/28 0959 93 Room Air I&O 10/28 0800 10/28 1600 10/29 0000 Intake Total 1651 1444 Output Total 1900 2625 1595 Balance -249 -2625 -151 General Appearance Alert, Oriented X3, Cooperative, Mild distress Lungs Clear to auscultation Cardiovascular Regular rate and rhythm Abdomen No tenderness Extremities No edema LAB Results Laboratory Tests 10/29 0511 Chemistry Plasma Sodium (136 - 145 mmol/L) 139 Plasma Potassium (3.5 - 5.1 mmol/L) 3.7 Plasma Chloride (98 - 107 mmol/L) 102 CO2 (Enzymatic) (21 - 32 mmol/L) 22 BUN (7 - 18 mg/dL) 20 Creatinine (0.6 - 1.3 mg/dL) 0.9 Est GFR ( Amer) (mL/min) >60 Est GFR (Non-Af Amer) (mL/min) >60 Glucose (70 - 110 mg/dL) 188 Plasma Calcium (8.5 - 10.1 mg/dL) 8.9 Phosphorus (2.5 - 4.9 mg/dL) 4.7 Plasma Magnesium (1.8 - 2.4 mg/dL) 2.4 Total Bilirubin (0.0 - 1.0 mg/dL) 0.7 AST (15 - 37 U/L) 36 ALT (12 - 78 U/L) 60 Alkaline Phosphatase (46 - 116 U/L) 151 Total Protein (6.4 - 8.2 g/dL) 6.5 Albumin (3.3 - 5.0 g/dL) 2.3 Hematology WBC (4.5 - 11.5 K/uL) 21.2 RBC (4.50 - 5.90 M/uL) 5.09 Hgb (13.5 - 17.5 gm/dL) 14.7 Hct (41.0 - 53.0 %) 45.7 MCV (80 - 100 fL) 90 MCH (26 - 34 pg) 29 RDW (11.6 - 14.8 %) 13.8 Neut % (Auto) (50 - 75 %) 54 Lymph % (Auto) (25 - 40 %) 14 [place] % (Auto) (3 - 14 %) 4 Eos % (Auto) (0 - 4 %) 2 Baso % (Auto) (0 - 2 %) 0 Band Neutrophils % (0 - 8 %) 26 Metamyelocytes % (0 - 1 %) 0 Myelocytes (0 - 1 %) 0 Other Cell Type RARE GIANT PLATELET Plt Count, EDTA (150 - 400 K/uL) 434 PUBS MCHC (31 - 37 g/dL) 32 Microbiology Date/Time Procedure - Status Source Growth 10/28 2020 Escherichia coli Shiga Toxins EIA - RECD STOOL 10/28 2020 Campylobacter Culture - RECD STOOL 10/28 2020 Salmonella/Shigella Culture - RECD STOOL 10/28 2020 Ova and Parasites - RECD STOOL 10/28 2020 Giardia Antigen Screen - RECD STOOL 10/28 1445 Stool Leukocytes - COMP STOOL Assessment and Plan Problem List 1. Pneumonia Status Acute Onset Date Unknown Plan Improving clinically on antibiotics but WBC increased yesterday. Will repeat CXR. 2. Peritonitis Plan On antibiotics and drains are in place. 3. Anxiety Plan Declines sedatives. Will start sertraline when taking po. 4. Tachycardia Plan Improved on meds. 5. Diarrhea Plan Unchanged on lactobacillus.
--- NOTE | 2016-10-29 09:30 | DIAGNOSTIC IMAGING REPORT ---
PROCEDURE: XR CHEST 1 VIEW INDICATION: pneumonia TECHNIQUE: Single view chest. 06:01 hours COMPARISON: 10/25/2016 FINDINGS: Right PICC line and nasogastric tube are stable. Improved inhalation compared to the prior study. Cardiomediastinal contour is within normal limits. No significant central vascular congestion. Asymmetric left hemidiaphragm elevation with dense atelectasis at the left lung base. Probable small effusion. Improved aeration at the left lower lung compared to the prior study. Mild right base atelectasis and trace effusion. No pneumothorax. Intact osseous structures. Two flat ZEYAD drains in the left upper quadrant of the abdomen. IMPRESSION: 1. Stable tubes, lines, and drains. 2. Improved inhalation and improved left lower lung aeration with persistent dense left base atelectasis and small effusion. 3. Very small right base atelectasis and effusion.
[2016-10-29 10:40] VITALS: BP 126/78
[2016-10-29 14:39] VITALS: BP 116/73
[2016-10-29 18:30] VITALS: BP 132/74
[2016-10-29 23:36] VITALS: BP 132/74
[2016-10-30 06:22] VITALS: BP 147/83
--- NOTE | 2016-10-30 06:27 | DIAGNOSTIC IMAGING REPORT ---
PROCEDURE: XR CHEST 2 VIEW INDICATION: Follow up pneumonia and atelectasis. TECHNIQUE: PA and lateral views. COMPARISON: Compared to chest x-rays on 10/29/2016 and 10/25/2016. FINDINGS: Allowing for overlying wires and electrodes, and suboptimal inspiration, there has been moderate improvement with resolving bibasilar atelectasis and left basilar consolidation. Lungs are otherwise clear. NG tube in distal stomach. Right PIC line in superior vena cava. Surgical drain left upper abdomen. IMPRESSION: 1. Moderate improvement with resolving bibasilar atelectasis/consolidation with mild to moderate residual changes at the left lung base.
--- NOTE | 2016-10-30 08:06 | Progress Note ---
Subjective General 46-year-old white male with obesity admitted for removal of gastric band due to erosion on October 22, 2016. Postoperatively the patient was noted to have findings of tachycardia, abdominal pain, and suspected pneumonia. Further w/u showed leakage from stomach into peritoneum and patient was taken back to surgery for gastric repair and for drain placement. Dr. Blackwell/Francisco are managing surgical care. IM and then I was consulted for pneumonia. Today patient has persistent watery diarrhea and fatigue. CT pending to evaluate status of abdomen. CXR obtained and shows improvement of pneumonia. Constitutional Malaise. Denies: Fever, Chills. Respiratory Denies: Cough, SOB w/exertion. Cardiovascular Denies: Chest Pain, Palpitations. Physical Exam Vital Signs / I&Os Vital Signs Date Time Temp Pulse Resp B/P Pulse O2 O2 Flow FiO2 Ox Delivery Rate 10/30 0622 98.2 114 18 147/83 95 Room Air 10/29 2336 98.1 105 16 132/74 92 Room Air 2.0 10/29 1830 98.1 110 16 132/74 92 Room Air 10/29 1439 98.1 102 16 116/73 95 Room Air 10/29 1040 97.7 106 20 126/78 93 Room Air 10/29 0934 Room Air I&O 10/29 0800 10/29 1600 10/30 0000 Intake Total 0 1394 Output Total 2500 1930 700 Balance -2500 -1930 694 General Appearance Alert, Oriented X3, Mild distress Lungs Clear to auscultation Cardiovascular Regular rate and rhythm Abdomen Soft, No tenderness Extremities No edema Skin No Rashes LAB Results Laboratory Tests 10/30 0559 Chemistry Plasma Sodium (136 - 145 mmol/L) 138 Plasma Potassium (3.5 - 5.1 mmol/L) 3.5 Plasma Chloride (98 - 107 mmol/L) 103 CO2 (Enzymatic) (21 - 32 mmol/L) 25 BUN (7 - 18 mg/dL) 23 Creatinine (0.6 - 1.3 mg/dL) 1.0 Est GFR ( Amer) (mL/min) >60 Est GFR (Non-Af Amer) (mL/min) >60 Glucose (70 - 110 mg/dL) 192 Plasma Calcium (8.5 - 10.1 mg/dL) 8.8 Plasma Magnesium (1.8 - 2.4 mg/dL) 2.2 Total Bilirubin (0.0 - 1.0 mg/dL) 0.6 AST (15 - 37 U/L) 42 ALT (12 - 78 U/L) 77 Alkaline Phosphatase (46 - 116 U/L) 180 Total Protein (6.4 - 8.2 g/dL) 7.4 Albumin (3.3 - 5.0 g/dL) 2.3 Hematology WBC (4.5 - 11.5 K/uL) 22.3 RBC (4.50 - 5.90 M/uL) 5.02 Hgb (13.5 - 17.5 gm/dL) 14.5 Hct (41.0 - 53.0 %) 44.8 MCV (80 - 100 fL) 89 MCH (26 - 34 pg) 29 RDW (11.6 - 14.8 %) 13.5 Neut % (Auto) (50 - 75 %) 82 Lymph % (Auto) (25 - 40 %) 9 [place] % (Auto) (3 - 14 %) 4 Eos % (Auto) (0 - 4 %) 2 Baso % (Auto) (0 - 2 %) 0 Band Neutrophils % (0 - 8 %) 1 Metamyelocytes % (0 - 1 %) 2 Myelocytes (0 - 1 %) 0 Other Cell Type 0 Plt Count, EDTA (150 - 400 K/uL) 484 PUBS MCHC (31 - 37 g/dL) 32 Assessment and Plan Problem List 1. Anxiety Plan Not improved. Will start sertraline when NG removed. 2. Pneumonia Status Acute Onset Date Unknown Plan Continue antibiotics. 3. Diarrhea Plan UNchanged. CT pending. per surgery.
--- NOTE | 2016-10-30 10:17 | DIAGNOSTIC IMAGING REPORT ---
PROCEDURE: CT ABD/PELVIS WITH CONTRAST CLINICAL INDICATION: Status post removal of eroded gastric band. Fever. Assess for leak or abscess. TECHNIQUE: 100 ml of Isovue 300 were injected intravenously and axial images were obtained of the entire abdomen and pelvis with sagittal and coronal reformations. Following 450 ml of dilute oral gastrographin, axial images were obtained of the abdomen with sagittal and coronal re-formations. COMPARISON: Comparison is made to CT thorax abdomen and pelvis on 10/24/2016. FINDINGS: ABDOMEN: Interval drainage of large subdiaphragmatic fluid collection/abscess with placement of surgical drain (of minimal residual). NG tube in position. Is a 9 cm x 3 cm fluid collection along the lateral spleen compatible with abscess. There is a posterior gastric perforation/leak with a 4.5 x 1.5 cm contained collection of contrast, located cranial and medial to the spleen. Spleen is normal. Mild generalized dilation of proximal small bowel loops consistent with ileus. Small amount of interloop fluid. Cholecystectomy. Liver, pancreas, kidneys, and aorta are normal. PELVIS: There is a large 13 cm x 13 cm loculated fluid collection in the central pelvis. Faustin catheter in decompressed urinary bladder. IMPRESSION: 1. Interim drainage of left subdiaphragmatic fluid collection/abscess with minimal residual. 2. There is a 9 cm x 3 cm perisplenic fluid collection compatible with abscess. 3. There is posterior gastric perforation/leak with a 4.5 x 1.5 cm contained contrast collection. 4. There is a large 13 cm fluid collection in the pelvis consistent with the loculated seroma. 5. Findings discussed with Dr. Blackwell. All CT scans at this facility use dose modulation, iterative reconstruction, and/or weight-based dosing when appropriate to reduce radiation dose to as low as reasonably achievable.
[2016-10-30 11:46] VITALS: BP 137/73
[2016-10-30 14:53] VITALS: BP 142/76
[2016-10-30 19:58] VITALS: BP 142/76
[2016-10-31 04:18] VITALS: BP 149/76
[2016-10-31 07:31] VITALS: BP 134/73
[2016-10-31 13:00] VITALS: BP 145/72
--- NOTE | 2016-10-31 13:49 | Progress Note ---
Subjective General 46YO MALE WITH PERITONITIS POST removal of eroding lap band, with pneumonia and anxiety. Pt interviewed very briefly this AM as he was going to bathroom ( persistent watery diarrhea). Now having drains placed in radiology. Physical Exam Vital Signs / I&Os Vital Signs Date Time Temp Pulse Resp B/P Pulse O2 O2 Flow FiO2 Ox Delivery Rate 10/31 0900 Room Air 0.0 10/31 0731 97.9 102 18 134/73 95 Room Air 10/31 0418 99.0 104 20 149/76 94 Room Air 10/31 0030 Room Air 2.0 10/30 1958 98.1 107 18 142/76 95 Room Air 10/30 1600 2.0 10/30 1453 98.4 102 24 142/76 98 Room Air I&O 10/30 0800 10/30 1600 10/31 0000 Intake Total 2114 0 0 Output Total 700 1368 675 Balance 1414 -1368 -675 General Appearance Alert, Oriented X3, Cooperative, Mild distress LAB Results Laboratory Tests 10/31 0600 Chemistry Plasma Sodium (136 - 145 mmol/L) 140 Plasma Potassium (3.5 - 5.1 mmol/L) 3.7 Plasma Chloride (98 - 107 mmol/L) 105 CO2 (Enzymatic) (21 - 32 mmol/L) 28 BUN (7 - 18 mg/dL) 19 Creatinine (0.6 - 1.3 mg/dL) 0.9 Est GFR ( Amer) (mL/min) >60 Est GFR (Non-Af Amer) (mL/min) >60 Glucose (70 - 110 mg/dL) 181 Plasma Calcium (8.5 - 10.1 mg/dL) 8.3 Assessment and Plan Problem List 1. Anxiety Plan Still markedly symptomatic. Pt declines BZD. Will start sertraline when NG removed. 2. Pneumonia Status Acute Onset Date Unknown Plan On antibiotics. Improving per CXR.
[2016-10-31 15:00] VITALS: BP 145/72
--- NOTE | 2016-10-31 17:32 | DIAGNOSTIC IMAGING REPORT ---
PROCEDURE: CT RETRO/PERITONEAL DRAINAGE INDICATION: Left upper quadrant perisplenic abscess. TECHNIQUE: Informed consent was obtained and the patient was advised of the usual risks and complications including infection, bleeding, allergy, pneumothorax, viscus perforation. COMPARISON: Comparison is made to CT abdomen and pelvis on 10/30/2016. FINDINGS: Supine position. Conscious sedation provided by the Department of Anesthesia. The patient was on antibiotics for the study. Following sterile preparation and 1% lidocaine local anesthetic, CT guidance was utilized to place a 16-gauge angiocatheter into the left lateral abdomen and directed cranially into a perisplenic fluid collection. Aspiration yielded a small amount of purulent material (sent for Gram stain and culture). Utilizing a 0.038 wire and dilators (8-S[place]an, 10-Sierra Leonean), a 10 [place] cope loop catheter was placed in the left upper abdominal fluid collection. 200 ml of purulent material was aspirated. The cavity was irrigated with two aliquots of normal saline (100 ml each). The catheter was secured to the patient's side and placed to Mendez-Carrillo bulb suction. The patient tolerated the procedure reasonably well and there were no complications. IMPRESSION: 1. Successful CT guided drainage of left upper quadrant perisplenic abscess with placement of 10-S[place]an cope loop catheter (yielded 200 ml purulent material ). All CT scans at this facility use dose modulation, iterative reconstruction, and/or weight-based dosing when appropriate to reduce radiation dose to as low as reasonably achievable.
--- NOTE | 2016-10-31 17:32 | DIAGNOSTIC IMAGING REPORT ---
PROCEDURE: CT RETRO/PERITONEAL DRAINAGE INDICATION: Left upper quadrant perisplenic abscess. TECHNIQUE: Informed consent was obtained and the patient was advised of the usual risks and complications including infection, bleeding, allergy, pneumothorax, viscus perforation. COMPARISON: Comparison is made to CT abdomen and pelvis on 10/30/2016. FINDINGS: Supine position. Conscious sedation provided by the Department of Anesthesia. The patient was on antibiotics for the study. Following sterile preparation and 1% lidocaine local anesthetic, CT guidance was utilized to place a 16-gauge angiocatheter into the left lateral abdomen and directed cranially into a perisplenic fluid collection. Aspiration yielded a small amount of purulent material (sent for Gram stain and culture). Utilizing a 0.038 wire and dilators (8-Fijian, 10-Fijian), a 10 Fijian cope loop catheter was placed in the left upper abdominal fluid collection. 200 ml of purulent material was aspirated. The cavity was irrigated with two aliquots of normal saline (100 ml each). The catheter was secured to the patient's side and placed to Mendez-Carrillo bulb suction. The patient tolerated the procedure reasonably well and there were no complications. IMPRESSION: 1. Successful CT guided drainage of left upper quadrant perisplenic abscess with placement of 10-Fijian cope loop catheter (yielded 200 ml purulent material ). All CT scans at this facility use dose modulation, iterative reconstruction, and/or weight-based dosing when appropriate to reduce radiation dose to as low as reasonably achievable.
--- NOTE | 2016-10-31 17:58 | DIAGNOSTIC IMAGING REPORT ---
PROCEDURE: CT RETRO/PERITONEAL DRAINAGE INDICATION: Large pelvic seroma versus abscess. TECHNIQUE: Informed consent was obtained and the patient was advised of the usual risks and complications including infection, bleeding, allergy, and viscus perforation. COMPARISON: Compared to CT pelvis on 10/30/2016. FINDINGS: Supine position. Conscious sedation provided by the Department of Anesthesia. The patient was on antibiotics for this procedure. Following sterile preparation and 1% lidocaine local anesthetic, CT guidance was utilized to place a 16-gauge angiocatheter in the midline in the lower ventral pelvis and directed into a large 13 cm fluid collection. This yielded only a small amount of serous fluid (50 ml) which was sent for laboratory studies (cell count differential, Gram stain culture). Since only a limited amount of fluid was obtained from a large collection, two more attempts were made to reinsert the 16-gauge angiocatheter was limited results (50 ml, 50 ml). Because of the difficulty draining this fluid collection, it was elected to place a cope loop drainage catheter. Utilizing an 0.038 guidewire and 8-Macedonian dilator, an 8-Macedonian cope loop catheter was placed in the fluid collection. This yielded more fluid (total of 225 ml). Limited ultrasound was performed, demonstrating a partially septated fluid collection with internal debris (suggests an evolving hematoma). The patient tolerated the procedure reasonably well and there were no complications. He was transferred back to the floor under the care of Anesthesia. IMPRESSION: 1. Partially successful CT-guided drainage of large pelvic fluid collection (yielded 225 ml serous fluid). Follow-up ultrasound demonstrated small to moderate residual proteinaceous material suggesting an evolving or resolving hematoma. 2. Findings discussed with Dr. Blackwell. . All CT scans at this facility use dose modulation, iterative reconstruction, and/or weight-based dosing when appropriate to reduce radiation dose to as low as reasonably achievable.
[2016-10-31 18:00] VITALS: BP 149/62
[2016-11-01 02:00] VITALS: BP 132/64
[2016-11-01 04:57] VITALS: BP 132/64
[2016-11-01 06:47] VITALS: BP 136/86
--- NOTE | 2016-11-01 13:51 | Progress Note ---
Subjective General 46YO MALE WITH PERITONITIS POST removal of eroding lap band, with pneumonia and anxiety. Pt interviewed very briefly this AM as he was going to bathroom ( persistent watery diarrhea). Drains placed in radiology 10/31 with good results. Serous drainage in one and purulent in the other. Feeling better today with better sleep, less diarrhea and less abdominal discomfort. Also less anxious.. Physical Exam Vital Signs / I&Os Vital Signs Date Time Temp Pulse Resp B/P Pulse O2 O2 Flow FiO2 Ox Delivery Rate 11/01 0930 Room Air 0.0 11/01 0647 98.2 101 18 136/86 95 Room Air 11/01 0457 98 132/64 11/01 0200 98.2 99 16 132/64 94 Room Air 10/31 2350 Room Air 0.0 10/31 1800 98.1 93 18 149/62 93 Room Air 10/31 1600 Room Air 10/31 1500 98.4 106 18 145/72 93 Room Air I&O 10/31 0800 10/31 1600 11/01 0000 Intake Total 3545 1035 989 Output Total 730 845 115 Balance 2815 190 874 General Appearance Alert, Oriented X3, Cooperative, No acute distress Cardiovascular Regular rate and rhythm Abdomen Soft, No tenderness, Drains in place, NG in place. Extremities No edema LAB Results Laboratory Tests 11/01 11/01 0540 0540 Chemistry Plasma Sodium (136 - 145 mmol/L) 140 Plasma Potassium (3.5 - 5.1 mmol/L) 4.2 Plasma Chloride (98 - 107 mmol/L) 106 CO2 (Enzymatic) (21 - 32 mmol/L) 29 BUN (7 - 18 mg/dL) 18 Creatinine (0.6 - 1.3 mg/dL) 0.8 Est GFR ( Amer) (mL/min) >60 Est GFR (Non-Af Amer) (mL/min) >60 Glucose (70 - 110 mg/dL) 160 Plasma Calcium (8.5 - 10.1 mg/dL) 7.9 Phosphorus (2.5 - 4.9 mg/dL) 3.4 Plasma Magnesium (1.8 - 2.4 mg/dL) 2.4 Total Bilirubin (0.0 - 1.0 mg/dL) 0.4 AST (15 - 37 U/L) 26 ALT (12 - 78 U/L) 50 Alkaline Phosphatase (46 - 116 U/L) 151 Total Protein (6.4 - 8.2 g/dL) 5.9 Albumin (3.3 - 5.0 g/dL) 2.0 Prealbumin Pending Assessment and Plan Problem List 1. Pneumonia Status Acute Onset Date Unknown Plan Improving with antibiotics. 2. Peritonitis Plan Improving with drains and antibiotics. 3. Diarrhea Plan Improving off reglan.
[2016-11-01 14:17] VITALS: BP 136/66
[2016-11-02 00:26] VITALS: BP 139/65
[2016-11-02 06:35] VITALS: BP 133/66
[2016-11-02 10:28] VITALS: BP 127/64
[2016-11-02 14:00] VITALS: BP 135/66
[2016-11-02 18:24] VITALS: BP 147/71
--- NOTE | 2016-11-02 20:29 | Progress Note ---
Subjective General Patient feeling mildly improved. No fevers/chillls. No SOB or cough. No chest pain. Physical Exam Vital Signs / I&Os Vital Signs Date Time Temp Pulse Resp B/P Pulse O2 O2 Flow FiO2 Ox Delivery Rate 11/02 1824 36.7 93 16 147/71 98 Room Air 11/02 1400 37.0 89 16 135/66 97 Room Air 0.0 11/02 1028 36.7 94 20 127/64 96 Room Air 0.0 11/02 0635 36.8 101 20 133/66 95 Room Air 0.0 11/02 0030 Room Air 0.0 11/02 0026 103 16 139/65 95 Room Air I&O 11/02 0000 11/01 1600 11/01 0800 Intake Total 5406 968 9739 Output Total 140 1179 460 Balance 886 -393 2068 General Appearance Alert, Oriented X3, Cooperative, No acute distress Lungs Clear to auscultation, Normal air movement Cardiovascular Regular rate and rhythm, Normal S1 and S2, No murmurs, gallops, rubs Abdomen Soft, Mildly decreased bowel sounds. Continue to have drainage from 2/4 ZEYAD, one of which is pus. Mildly tender diffusely. Extremities No edema Assessment and Plan Problem List 1. Peritonitis Plan Antibiotics stopped as all cultures wnl and on abx x 7+ days. Managed by surgery. 2. Gastric band erosion Status Acute Onset Date Unknown Plan See above. 3. Pneumonia Status Acute Onset Date Unknown Plan s/p antibiotics x 7+ days and clinically resolved. Will monitor. 4. Hyperglycemia Plan Changed IVF from D5 1/2NS to 1/2 NS as glucose in TPN. Will monitor blood sugars tomorrow. If continue to be elevated, would add lantus. 5. Anemia Plan Significant decrease from 3 days ago. Recheck this afternoon and in am.
[2016-11-03 04:56] VITALS: BP 145/73
--- NOTE | 2016-11-03 08:33 | Progress Note ---
Subjective General 46YO MALE WITH PERITONITIS POST removal of eroding lap band, with pneumonia and anxiety. Pt interviewed very briefly this AM as he was going to bathroom ( persistent watery diarrhea). Drains placed in radiology 10/31 with good results. Serous drainage in one and purulent in the other. Feeling better today. Less pain and sleeping better and more relaxed. Physical Exam Vital Signs / I&Os Vital Signs Date Time Temp Pulse Resp B/P Pulse O2 O2 Flow FiO2 Ox Delivery Rate 11/03 0456 98.2 101 16 145/73 96 Room Air 11/03 0000 Room Air 11/02 1824 98.1 93 16 147/71 98 Room Air 11/02 1630 Room Air 11/02 1400 98.6 89 16 135/66 97 Room Air 0.0 11/02 1028 98.1 94 20 127/64 96 Room Air 0.0 I&O 11/02 0800 11/02 1600 11/03 0000 Intake Total 1473 1063 1480 Output Total 140 275 200 Balance 8591 211 2393 General Appearance Alert, Oriented X3, Cooperative Lungs Clear to auscultation Cardiovascular Regular rate and rhythm Abdomen Soft, No tenderness Extremities No edema Skin No Rashes LAB Results Laboratory Tests 11/02 11/02 11/03 0843 1530 0645 Chemistry Plasma Sodium (136 - 145 mmol/L) 140 139 Plasma Potassium (3.5 - 5.1 mmol/L) 3.9 4.4 Plasma Chloride (98 - 107 mmol/L) 105 103 CO2 (Enzymatic) (21 - 32 mmol/L) 30 30 BUN (7 - 18 mg/dL) 19 18 Creatinine (0.6 - 1.3 mg/dL) 0.9 0.9 Est GFR ( Amer) (mL/min) >60 >60 Est GFR (Non-Af Amer) (mL/min) >60 >60 Glucose (70 - 110 mg/dL) 158 152 Plasma Calcium (8.5 - 10.1 mg/dL) 8.1 7.8 Hematology WBC (4.5 - 11.5 K/uL) 16.2 RBC (4.50 - 5.90 M/uL) 4.11 Hgb (13.5 - 17.5 gm/dL) 12.4 12.0 Hct (41.0 - 53.0 %) 37.9 37.1 MCV (80 - 100 fL) 90 MCH (26 - 34 pg) 29 RDW (11.6 - 14.8 %) 13.7 Neut % (Auto) (50 - 75 %) 87.6 Lymph % (Auto) (25 - 40 %) 5.1 [place] % (Auto) (3 - 14 %) 6.2 Eos % (Auto) (0 - 4 %) 1.0 Baso % (Auto) (0 - 2 %) 0.1 Plt Count, EDTA (150 - 400 K/uL) 572 PUBS MCHC (31 - 37 g/dL) 32 Assessment and Plan Problem List 1. Pneumonia Status Acute Onset Date Unknown Plan Improved. Will continue to monitor off meds. Antibiotics were stopped due to yeast. 2. Peritonitis Plan Improving with drains in place. 3. Anxiety Plan Improved.
[2016-11-03 08:34] VITALS: BP 129/65
[2016-11-03 15:00] VITALS: BP 122/67
[2016-11-04 00:28] VITALS: BP 129/64
[2016-11-04 06:30] VITALS: BP 133/61
[2016-11-04 10:10] VITALS: BP 149/65
[2016-11-04 14:20] VITALS: BP 121/62
[2016-11-04 17:57] VITALS: BP 124/60
--- NOTE | 2016-11-04 19:55 | Progress Note ---
Subjective General 46YO MALE WITH PERITONITIS POST removal of eroding lap band, with pneumonia and anxiety. Pt interviewed very briefly this AM as he was going to bathroom ( persistent watery diarrhea). Drains placed in radiology 10/31 with good results. Serous drainage in one and purulent in the other. Feeling better today with less pain. Ambulating well. Bothered by lots of secretions in throat. Tried atropine last night with little benefit. Started Transderm Scop today. So far not too helpful but willing to try it longer. Physical Exam Vital Signs / I&Os Vital Signs Date Time Temp Pulse Resp B/P Pulse O2 O2 Flow FiO2 Ox Delivery Rate 11/04 1829 Room Air 11/04 1757 99.3 104 18 124/60 96 Room Air 11/04 1420 98.8 99 18 121/62 96 Room Air 11/04 1010 97.7 97 18 149/65 96 Room Air 11/04 0630 98.2 92 18 133/61 96 Room Air 11/04 0348 99.0 11/04 0028 98.8 101 18 129/64 94 Room Air 0.0 11/04 0020 Room Air 11/03 2154 99.9 I&O 11/03 0800 11/03 1600 11/04 0000 Intake Total 1077 1036 1279 Output Total 1040 666 44 Balance 37 370 1235 General Appearance Alert, Oriented X3, Cooperative Lungs Clear to auscultation Cardiovascular Regular rate and rhythm Extremities No edema Assessment and Plan Problem List 1. Anxiety Plan Improved as health is improving though aggravated by congestion in throat. 2. Tachycardia Plan Stable.
[2016-11-04 21:27] VITALS: BP 122/63
[2016-11-05 06:47] VITALS: BP 122/72
[2016-11-05 11:24] VITALS: BP 124/62
--- NOTE | 2016-11-05 13:13 | Progress Note ---
Subjective General Stable. no chest pain or SOB. Abdominal discomfort is unchanged. No nausea/ vomitting. Phlegm is slightly improved. Physical Exam Vital Signs / I&Os Vital Signs Date Time Temp Pulse Resp B/P Pulse O2 O2 Flow FiO2 Ox Delivery Rate 11/05 1124 36.7 97 18 124/62 94 Room Air 11/05 0647 37.2 100 18 122/72 94 Room Air 11/04 2127 36.9 103 18 122/63 95 Room Air 11/04 1829 Room Air 11/04 1757 37.4 104 18 124/60 96 Room Air 11/04 1420 37.1 99 18 121/62 96 Room Air I&O 11/05 0000 11/04 1600 11/04 0800 Intake Total 0390 045 1833 Output Total 1465 604 350 Balance -395 375 884 General Appearance Alert, Oriented X3, Cooperative, No acute distress Lungs Clear to auscultation, Normal air movement Cardiovascular Regular rate and rhythm, Normal S1 and S2, No murmurs, gallops, rubs Abdomen Soft, Minimal bowel sounds. Tenderness stable. Extremities No edema Assessment and Plan Problem List 1. Peritonitis Plan Yeast in culture. Discussed starting antifungal with surgery. They would prefer to wait for culture. Surgery managing. 2. Gastric band erosion Status Acute Onset Date Unknown 3. Hyperglycemia Plan Likely to be on long-term TPN. Will start low dose lantus to slightly decrease blood sugars. Would recommend cyclic TPN. 4. Anemia Plan Stable.
[2016-11-05 14:37] VITALS: BP 107/61
[2016-11-05 18:25] VITALS: BP 108/70
[2016-11-05 22:40] VITALS: BP 112/65
[2016-11-06 06:23] VITALS: BP 120/62
--- NOTE | 2016-11-06 08:16 | Progress Note ---
Subjective General 46YO MALE WITH PERITONITIS POST removal of eroding lap band, with pneumonia and anxiety. Pt interviewed very briefly this AM as he was going to bathroom ( persistent watery diarrhea). Drains placed in radiology 10/31 with good results. Serous drainage in one and purulent in the other. Feeling better today with less pain. Ambulating well. Bothered by lots of secretions in throat. Transderm scop helping a bit. Also he is just swallowing more of the phlegm now. Physical Exam Vital Signs / I&Os Vital Signs Date Time Temp Pulse Resp B/P Pulse O2 O2 Flow FiO2 Ox Delivery Rate 11/06 0623 98.1 90 18 120/62 98 Room Air 11/06 0236 Room Air 11/05 2240 98.2 94 18 112/65 95 Room Air 11/05 1825 98.2 86 18 108/70 96 Room Air 11/05 1630 Room Air 11/05 1437 99.0 90 18 107/61 97 / 1124 98.1 97 18 124/62 94 Room Air I&O 11/05 0800 11/05 1600 11/06 0000 Intake Total 1081 10 2199 Output Total 355 937 488 Balance 726 -927 1711 General Appearance Alert, Oriented X3, Cooperative Lungs Normal exam, Clear to auscultation Cardiovascular Regular rate and rhythm Abdomen Soft, No tenderness, Multiple drains in place. NG in place. Extremities No edema LAB Results Laboratory Tests 11/06 0535 Chemistry Plasma Sodium (136 - 145 mmol/L) 134 Plasma Potassium (3.5 - 5.1 mmol/L) 4.7 Plasma Chloride (98 - 107 mmol/L) 99 CO2 (Enzymatic) (21 - 32 mmol/L) 29 BUN (7 - 18 mg/dL) 22 Creatinine (0.6 - 1.3 mg/dL) 0.9 Est GFR ( Amer) (mL/min) >60 Est GFR (Non-Af Amer) (mL/min) >60 Glucose (70 - 110 mg/dL) 137 Plasma Calcium (8.5 - 10.1 mg/dL) 8.1 Phosphorus (2.5 - 4.9 mg/dL) 4.3 Plasma Magnesium (1.8 - 2.4 mg/dL) 2.0 Total Bilirubin (0.0 - 1.0 mg/dL) 0.4 AST (15 - 37 U/L) 23 ALT (12 - 78 U/L) 43 Alkaline Phosphatase (46 - 116 U/L) 185 Total Protein (6.4 - 8.2 g/dL) 6.7 Albumin (3.3 - 5.0 g/dL) 2.0 Hematology WBC (4.5 - 11.5 K/uL) 14.3 RBC (4.50 - 5.90 M/uL) 4.04 Hgb (13.5 - 17.5 gm/dL) 11.8 Hct (41.0 - 53.0 %) 35.8 MCV (80 - 100 fL) 89 MCH (26 - 34 pg) 29 RDW (11.6 - 14.8 %) 13.2 Neut % (Auto) (50 - 75 %) 83.3 Lymph % (Auto) (25 - 40 %) 7.6 [place] % (Auto) (3 - 14 %) 7.1 Eos % (Auto) (0 - 4 %) 1.6 Baso % (Auto) (0 - 2 %) 0.4 Plt Count, EDTA (150 - 400 K/uL) 681 PUBS MCHC (31 - 37 g/dL) 33 Assessment and Plan Problem List 1. Peritonitis Plan Improving per surgical treatment. 2. Pneumonia Status Acute Onset Date Unknown Plan Clinically resolved. Will defer CXR. 3. Anxiety Plan Improving as pt is in less discomfort.
--- NOTE | 2016-11-06 13:23 | DIAGNOSTIC IMAGING REPORT ---
PROCEDURE: US ABDOMEN ULTRASOUND-LIMITED INDICATION: r/o fluid collection LUQ and pelvis TECHNIQUE: Allen scale and color Doppler sonographic images of the abdomen were obtained. COMPARISON: CT of the/pelvis 10/30/2016 FINDINGS: There is no residual left subdiaphragmatic fluid. 1.4 cm thick perisplenic collection with internal echoes, possibly a subcapsular hematoma, but there is no perisplenic free fluid. There is a 3.3 x 6.1 x2.3 cm fluid collection around the mid left abdominal drain at the level of the umbilicus. There is no evidence of a residual fluid collection in the pelvis corresponding to a fluid collection behind the bladder on the previous CT scan. IMPRESSION: 1. Resolved left subdiaphragmatic and low pelvic fluid collections 2. 1.4 cm thick perisplenic collection suggestive of a hematoma 3. 3.3 x 6.1 x 2.3 cm free fluid around the left mid abdominal surgical drain
[2016-11-06 16:00] VITALS: BP 115/61
[2016-11-06 19:15] VITALS: BP 115/60
[2016-11-06 22:09] VITALS: BP 122/60
[2016-11-07 06:27] VITALS: BP 123/73
[2016-11-07 14:21] VITALS: BP 122/73
--- NOTE | 2016-11-07 18:46 | Progress Note ---
Subjective General 46YO MALE WITH PERITONITIS POST removal of eroding lap band, with pneumonia and anxiety. Pt interviewed very briefly this AM as he was going to bathroom ( persistent watery diarrhea). Drains placed in radiology 10/31 with good results. Serous drainage in one and purulent in the other. Feeling better today with less pain. Ambulating well. Less secretions now. Feeling better overall. Dr. Blackwell has ordered GI follow thru study to evaluate tomorrow. Pt is hoping and praying that it will show no leaks. Physical Exam Vital Signs / I&Os Vital Signs Date Time Temp Pulse Resp B/P Pulse O2 O2 Flow FiO2 Ox Delivery Rate 11/07 1421 98.4 85 18 122/73 98 Room Air 11/07 0830 Room Air 11/07 0627 98.2 92 18 123/73 94 Room Air 11/06 2209 99.3 99 18 122/60 95 Room Air 11/06 1915 98.4 99 18 115/60 95 Room Air I&O 11/06 0800 11/06 1600 11/07 0000 Intake Total 1046 0 Output Total 166 496 440 Balance 880 -496 -440 General Appearance Alert, Oriented X3, No acute distress Lungs Clear to auscultation Cardiovascular Regular rate and rhythm Abdomen No tenderness, tubes in place. Extremities No edema LAB Results Laboratory Tests 11/07 0620 Chemistry Plasma Sodium (136 - 145 mmol/L) 134 Plasma Potassium (3.5 - 5.1 mmol/L) 4.6 Plasma Chloride (98 - 107 mmol/L) 99 CO2 (Enzymatic) (21 - 32 mmol/L) 29 BUN (7 - 18 mg/dL) 18 Creatinine (0.6 - 1.3 mg/dL) 1.1 Est GFR ( Amer) (mL/min) >60 Est GFR (Non-Af Amer) (mL/min) >60 Glucose (70 - 110 mg/dL) 139 Plasma Calcium (8.5 - 10.1 mg/dL) 8.5 Total Bilirubin (0.0 - 1.0 mg/dL) 0.4 AST (15 - 37 U/L) 18 ALT (12 - 78 U/L) 39 Alkaline Phosphatase (46 - 116 U/L) 189 Total Protein (6.4 - 8.2 g/dL) 7.9 Albumin (3.3 - 5.0 g/dL) 2.0 Hematology WBC (4.5 - 11.5 K/uL) 13.6 RBC (4.50 - 5.90 M/uL) 4.23 Hgb (13.5 - 17.5 gm/dL) 12.3 Hct (41.0 - 53.0 %) 37.8 MCV (80 - 100 fL) 89 MCH (26 - 34 pg) 29 RDW (11.6 - 14.8 %) 13.1 Neut % (Auto) (50 - 75 %) 82.8 Lymph % (Auto) (25 - 40 %) 9.0 [place] % (Auto) (3 - 14 %) 6.4 Eos % (Auto) (0 - 4 %) 1.5 Baso % (Auto) (0 - 2 %) 0.3 Plt Count, EDTA (150 - 400 K/uL) 696 PUBS MCHC (31 - 37 g/dL) 33 Assessment and Plan Problem List 1. Pneumonia Status Acute Onset Date Unknown Plan Clinically resolved. 2. Anxiety Plan Controlled and improved with improving comfort. Will d/c bzd order as he is not taking it.
[2016-11-08 05:42] VITALS: BP 124/74
[2016-11-08 07:31] VITALS: BP 117/72
--- NOTE | 2016-11-08 10:41 | DIAGNOSTIC IMAGING REPORT ---
PROCEDURE: CT ABD/PELVIS WITH CONTRAST CLINICAL INDICATION: rule out gastric leak and evaluate intra abdominal fluid, follow-up TECHNIQUE: 100 ml of Isovue 370 were injected intravenously and axial images were obtained of the entire abdomen and pelvis with sagittal and coronal reformations. 450 ml H20/15 ml gastrographin p.o. COMPARISON: CT abdomen/pelvis 10/30/2016 FINDINGS: ABDOMEN: Resolved posterior gastric perforation without active leaking . Two left subdiaphragmatic surgical drains in place with stable minimal residual fluid collection (3 x 4.5 x 1.5 cm). There is a lateral perisplenic drainage catheter in place with slight progression of a 9 x 3.5 cm fluid collection laterally (previously 9 x 3 cm) which appears to be under tension with indentation of the splenic contour. Decreasing interloop fluid (6.5 x 1.2 cm, images 56 - 61) and right pericolic gutter.. NG tube in place. Cholecystectomy. Liver, pancreas, adrenal glands and kidneys are normal. Normal abdominal aorta. Left basilar atelectasis. PELVIS: There is a midline anterior catheter draining a much smaller 9 x 4.5 x 3 cm fluid collection containing multiple small air bubbles (previously 15 x 10 x7.5 cm). There is no free air. Bones are unremarkable. IMPRESSION: 1. Perisplenic drainage catheter in place with slight progression of left perisplenic fluid collection. This may require irrigation. 2. Resolved posterior gastric perforation 3. Two left subdiaphragmatic surgical drains place with stable minimal fluid collection 4. Pelvic drainage catheter with markedly decreased fluid collection mild demonstrating multiple air bubbles. Appearance may be the result of evolving hematoma or irrigation. 5. Results discussed with Dr. Blackwell All CT scans at this facility use dose modulation, iterative reconstruction, and/or weight-based dosing when appropriate to reduce radiation dose to as low as reasonably achievable.
--- NOTE | 2016-11-08 17:03 | DIAGNOSTIC IMAGING REPORT ---
PROCEDURE: XR UPPER GI WITH GASTROGRAFIN INDICATION: Check for gastric leak. Post surgery for eroded gastric band. TECHNIQUE: Single contrast study. Fluoroscopy time 3.5 2947.77 mGy. 75 ml of Gastrografin contrast material ingested. COMPARISON: Comparison is made to gastrographin upper GI on 10/24/[address] abdomen and pelvis earlier today (11/08/2016). FINDINGS: NG tube is in position. Images were acquired in AP, supine, RENE, SVETA positions. There is no evidence of gastric leak at this time. IMPRESSION: 1. No evidence of gastric leak at this time. 2. NG tube removed (as requested by Dr. Blackwell).
--- NOTE | 2016-11-08 17:27 | DIAGNOSTIC IMAGING REPORT ---
PROCEDURE: XR TUBE/DRAIN REPOSITION/CHNG INDICATION: Persistent fluid collection after left upper quadrant abscess drainage. TECHNIQUE: Fluoroscopy time 0.9 minutes (491.46 mGy). Dr. Blackwell in attendance. COMPARISON: Comparison is made to CT abdomen and pelvis earlier today (11/08/2016). FINDINGS: CT study earlier today demonstrated a reaccumulation of fluid along the left lateral spleen despite the 10-[place]aman[place] drainage tube appearing to be satisfactory position (although located in the upper cavity). Fluoroscopy: It was elected to partial withdraw the catheter into the mid cavity to facilitate improved drainage, and this was accomplished under fluoroscopic guidance. The catheter was re-secured to the patient's side (Tegaderm). Initial aspiration of the left upper quadrant fluid collection was met with significant resistance, which appeared to be secondary to internal debris and viscus fluid. Approximately 100 ml of purulent material was eventually aspirated (samples sent for Gram stain culture, fungal stain culture). Subsequently, the cavity was then irrigated with approximately 750 ml of normal saline in 100 ml aliquots, with clearing of the fluid (mildly cloudy residual). Finally, an attempt was made to aspirate fluid for the patient's pelvic hematoma and collection, with minimal results. Ultrasound: Follow-up ultrasound post drainage demonstrated minimal residual fluid along the lateral border of the spleen. Follow-up ultrasound of the pelvis demonstrate an echogenic material consistent with hematoma, but no evidence of significant fluid IMPRESSION: 1. Successful fluoroscopic repositioning of 10-[place] drainage catheter from the upper cavity into the mid cavity (to facilitate drainage). 2. Aspiration of the left upper quadrant fluid collection yielded 100 ml of purulent material (after some difficulty due to obstructing internal debris). Subsequent irrigation eventually resulted in minimally cloudy fluid, and follow- up ultrasound demonstrated successful drainage with minimal residual fluid. 3. No evidence of significant pelvic fluid. 4. Findings discussed with Dr. Blackwell.
--- NOTE | 2016-11-08 17:27 | DIAGNOSTIC IMAGING REPORT ---
PROCEDURE: XR TUBE/DRAIN REPOSITION/CHNG INDICATION: Persistent fluid collection after left upper quadrant abscess drainage. TECHNIQUE: Fluoroscopy time 0.9 minutes (491.46 mGy). Dr. Blackwell in attendance. COMPARISON: Comparison is made to CT abdomen and pelvis earlier today (11/08/2016). FINDINGS: CT study earlier today demonstrated a reaccumulation of fluid along the left lateral spleen despite the 10-[place] drainage tube appearing to be satisfactory position (although located in the upper cavity). Fluoroscopy: It was elected to partial withdraw the catheter into the mid cavity to facilitate improved drainage, and this was accomplished under fluoroscopic guidance. The catheter was re-secured to the patient's side (Tegaderm). Initial aspiration of the left upper quadrant fluid collection was met with significant resistance, which appeared to be secondary to internal debris and viscus fluid. Approximately 100 ml of purulent material was eventually aspirated (samples sent for Gram stain culture, fungal stain culture). Subsequently, the cavity was then irrigated with approximately 750 ml of normal saline in 100 ml aliquots, with clearing of the fluid (mildly cloudy residual). Finally, an attempt was made to aspirate fluid for the patient's pelvic hematoma and collection, with minimal results. Ultrasound: Follow-up ultrasound post drainage demonstrated minimal residual fluid along the lateral border of the spleen. Follow-up ultrasound of the pelvis demonstrate an echogenic material consistent with hematoma, but no evidence of significant fluid IMPRESSION: 1. Successful fluoroscopic repositioning of 10-[place] drainage catheter from the upper cavity into the mid cavity (to facilitate drainage). 2. Aspiration of the left upper quadrant fluid collection yielded 100 ml of purulent material (after some difficulty due to obstructing internal debris). Subsequent irrigation eventually resulted in minimally cloudy fluid, and follow- up ultrasound demonstrated successful drainage with minimal residual fluid. 3. No evidence of significant pelvic fluid. 4. Findings discussed with Dr. Blackwell.
--- NOTE | 2016-11-08 17:27 | DIAGNOSTIC IMAGING REPORT ---
PROCEDURE: XR TUBE/DRAIN REPOSITION/CHNG INDICATION: Persistent fluid collection after left upper quadrant abscess drainage. TECHNIQUE: Fluoroscopy time 0.9 minutes (491.46 mGy). Dr. Blackwell in attendance. COMPARISON: Comparison is made to CT abdomen and pelvis earlier today (11/08/2016). FINDINGS: CT study earlier today demonstrated a reaccumulation of fluid along the left lateral spleen despite the 10-[place]izen [place] drainage tube appearing to be satisfactory position (although located in the upper cavity). Fluoroscopy: It was elected to partial withdraw the catheter into the mid cavity to facilitate improved drainage, and this was accomplished under fluoroscopic guidance. The catheter was re-secured to the patient's side (Tegaderm). Initial aspiration of the left upper quadrant fluid collection was met with significant resistance, which appeared to be secondary to internal debris and viscus fluid. Approximately 100 ml of purulent material was eventually aspirated (samples sent for Gram stain culture, fungal stain culture). Subsequently, the cavity was then irrigated with approximately 750 ml of normal saline in 100 ml aliquots, with clearing of the fluid (mildly cloudy residual). Finally, an attempt was made to aspirate fluid for the patient's pelvic hematoma and collection, with minimal results. Ultrasound: Follow-up ultrasound post drainage demonstrated minimal residual fluid along the lateral border of the spleen. Follow-up ultrasound of the pelvis demonstrate an echogenic material consistent with hematoma, but no evidence of significant fluid IMPRESSION: 1. Successful fluoroscopic repositioning of 10-[place]izen [place] drainage catheter from the upper cavity into the mid cavity (to facilitate drainage). 2. Aspiration of the left upper quadrant fluid collection yielded 100 ml of purulent material (after some difficulty due to obstructing internal debris). Subsequent irrigation eventually resulted in minimally cloudy fluid, and follow- up ultrasound demonstrated successful drainage with minimal residual fluid. 3. No evidence of significant pelvic fluid. 4. Findings discussed with Dr. Blackwell.
--- NOTE | 2016-11-08 17:27 | DIAGNOSTIC IMAGING REPORT ---
PROCEDURE: XR TUBE/DRAIN REPOSITION/CHNG INDICATION: Persistent fluid collection after left upper quadrant abscess drainage. TECHNIQUE: Fluoroscopy time 0.9 minutes (491.46 mGy). Dr. Blackwell in attendance. COMPARISON: Comparison is made to CT abdomen and pelvis earlier today (11/08/2016). FINDINGS: CT study earlier today demonstrated a reaccumulation of fluid along the left lateral spleen despite the 10-[place] drainage tube appearing to be satisfactory position (although located in the upper cavity). Fluoroscopy: It was elected to partial withdraw the catheter into the mid cavity to facilitate improved drainage, and this was accomplished under fluoroscopic guidance. The catheter was re-secured to the patient's side (Tegaderm). Initial aspiration of the left upper quadrant fluid collection was met with significant resistance, which appeared to be secondary to internal debris and viscus fluid. Approximately 100 ml of purulent material was eventually aspirated (samples sent for Gram stain culture, fungal stain culture). Subsequently, the cavity was then irrigated with approximately 750 ml of normal saline in 100 ml aliquots, with clearing of the fluid (mildly cloudy residual). Finally, an attempt was made to aspirate fluid for the patient's pelvic hematoma and collection, with minimal results. Ultrasound: Follow-up ultrasound post drainage demonstrated minimal residual fluid along the lateral border of the spleen. Follow-up ultrasound of the pelvis demonstrate an echogenic material consistent with hematoma, but no evidence of significant fluid IMPRESSION: 1. Successful fluoroscopic repositioning of 10-[place] drainage catheter from the upper cavity into the mid cavity (to facilitate drainage). 2. Aspiration of the left upper quadrant fluid collection yielded 100 ml of purulent material (after some difficulty due to obstructing internal debris). Subsequent irrigation eventually resulted in minimally cloudy fluid, and follow- up ultrasound demonstrated successful drainage with minimal residual fluid. 3. No evidence of significant pelvic fluid. 4. Findings discussed with Dr. Blackwell.
[2016-11-08 18:08] VITALS: BP 131/65
[2016-11-08 19:11] VITALS: BP 133/66
--- NOTE | 2016-11-08 19:18 | Progress Note ---
Subjective General 46YO MALE WITH PERITONITIS POST removal of eroding lap band, with pneumonia and anxiety. Pt interviewed very briefly this AM as he was going to bathroom ( persistent watery diarrhea). Drains placed in radiology 10/31 with good results. UGI contrast study with CT showed no leaks. Some fluid around drains. NG removed and one drain aspirated today. Now having some increased temp and tachycardia. Denies cough or pain or nausea/vomiting. Physical Exam Vital Signs / I&Os Vital Signs Date Time Temp Pulse Resp B/P Pulse O2 O2 Flow FiO2 Ox Delivery Rate 11/08 1911 100.2 117 133/66 94 Room Air 11/08 1906 115 11/08 1808 99.3 108 18 131/65 96 Room Air 11/08 0731 99.0 82 18 117/72 96 Room Air 11/08 0542 98.8 87 18 124/74 99 Room Air I&O 11/07 0800 11/07 1600 11/08 0000 Intake Total 3314 0 Output Total 1715 708 560 Balance 1599 -708 -560 General Appearance Alert, Oriented X3, Mild distress Lungs Clear to auscultation, Normal air movement Cardiovascular Regular rate and rhythm Abdomen Soft, No tenderness, No guarding Extremities No edema Skin No Rashes LAB Results Laboratory Tests 11/08 619 Chemistry Plasma Sodium (136 - 145 mmol/L) 136 Plasma Potassium (3.5 - 5.1 mmol/L) 4.6 Plasma Chloride (98 - 107 mmol/L) 100 CO2 (Enzymatic) (21 - 32 mmol/L) 27 BUN (7 - 18 mg/dL) 18 Creatinine (0.6 - 1.3 mg/dL) 1.0 Est GFR ( Amer) (mL/min) >60 Est GFR (Non-Af Amer) (mL/min) >60 Glucose (70 - 110 mg/dL) 150 Plasma Calcium (8.5 - 10.1 mg/dL) 8.6 Total Bilirubin (0.0 - 1.0 mg/dL) 0.3 AST (15 - 37 U/L) 19 ALT (12 - 78 U/L) 29 Alkaline Phosphatase (46 - 116 U/L) 181 Total Protein (6.4 - 8.2 g/dL) 7.0 Albumin (3.3 - 5.0 g/dL) 2.0 Hematology WBC (4.5 - 11.5 K/uL) 13.2 RBC (4.50 - 5.90 M/uL) 4.02 Hgb (13.5 - 17.5 gm/dL) 11.7 Hct (41.0 - 53.0 %) 35.9 MCV (80 - 100 fL) 89 MCH (26 - 34 pg) 29 RDW (11.6 - 14.8 %) 13.1 Neut % (Auto) (50 - 75 %) 84.7 Lymph % (Auto) (25 - 40 %) 7.4 [place] % (Auto) (3 - 14 %) 5.9 Eos % (Auto) (0 - 4 %) 1.4 Baso % (Auto) (0 - 2 %) 0.6 Plt Count, EDTA (150 - 400 K/uL) 632 PUBS MCHC (31 - 37 g/dL) 33 Microbiology Date/Time Procedure - Status Source Growth 11/08 1600 Fungal Culture - RECD ABDOMEN 11/08 1600 Fungal Smear - RECD ABDOMEN 11/08 1600 Anaerobic Culture - RECD ABDOMEN 11/08 1600 Body Fluid Culture - RECD ABDOMEN 11/08 1600 Gram Stain - RECD ABDOMEN Assessment and Plan Problem List 1. Pneumonia Status Acute Onset Date Unknown Plan Clinically resolved. 2. Anxiety Plan Aggravated by concern over temp. 3. Peritonitis Plan Improving by CT contrast study. Temp post aspiration.
[2016-11-08 23:01] VITALS: BP 113/60
[2016-11-09 07:55] VITALS: BP 121/58
--- NOTE | 2016-11-09 09:28 | Progress Note ---
Subjective General 46YO MALE WITH PERITONITIS POST removal of eroding lap band, with pneumonia and anxiety. Pt interviewed very briefly this AM as he was going to bathroom ( persistent watery diarrhea). Drains placed in radiology 10/31 with good results. UGI contrast study with CT showed no leaks. Some fluid around drains. NG removed and one drain aspirated 11/08. Now having some increased temp and tachycardia. Denies cough or pain or nausea/vomiting. Feels more tired today. Physical Exam Vital Signs / I&Os Vital Signs Date Time Temp Pulse Resp B/P Pulse O2 O2 Flow FiO2 Ox Delivery Rate 11/09 0755 99.9 107 16 121/58 94 Room Air 11/09 0212 98.6 16 11/08 2301 99.9 102 18 113/60 94 Room Air 0.0 11/08 2200 100.8 11/08 2130 100.8 104 11/08 1911 100.2 117 133/66 94 Room Air 11/08 1906 115 11/08 1808 99.3 108 18 131/65 96 Room Air 11/08 1700 Room Air I&O 11/08 0800 11/08 1600 11/09 0000 Intake Total 3106 1222 953 Output Total 1054 955 341 Balance 2052 267 612 General Appearance Alert, Oriented X3, Cooperative, No acute distress Lungs Clear to auscultation Cardiovascular Regular rate and rhythm Abdomen Soft, No tenderness Extremities No edema LAB Results Laboratory Tests 11/09 599 Chemistry Plasma Sodium (136 - 145 mmol/L) 134 Plasma Potassium (3.5 - 5.1 mmol/L) 4.9 Plasma Chloride (98 - 107 mmol/L) 100 CO2 (Enzymatic) (21 - 32 mmol/L) 28 BUN (7 - 18 mg/dL) 18 Creatinine (0.6 - 1.3 mg/dL) 1.1 Est GFR ( Amer) (mL/min) >60 Est GFR (Non-Af Amer) (mL/min) >60 Glucose (70 - 110 mg/dL) 158 Plasma Calcium (8.5 - 10.1 mg/dL) 8.2 Total Bilirubin (0.0 - 1.0 mg/dL) 0.3 AST (15 - 37 U/L) 16 ALT (12 - 78 U/L) 31 Alkaline Phosphatase (46 - 116 U/L) 189 Total Protein (6.4 - 8.2 g/dL) 6.8 Albumin (3.3 - 5.0 g/dL) 2.0 Lipase (73 - 393 U/L) 113 Hematology WBC (4.5 - 11.5 K/uL) 12.6 RBC (4.50 - 5.90 M/uL) 3.97 Hgb (13.5 - 17.5 gm/dL) 11.5 Hct (41.0 - 53.0 %) 35.3 MCV (80 - 100 fL) 89 MCH (26 - 34 pg) 29 RDW (11.6 - 14.8 %) 13.0 Neut % (Auto) (50 - 75 %) 89.5 Lymph % (Auto) (25 - 40 %) 4.2 [place] % (Auto) (3 - 14 %) 5.1 Eos % (Auto) (0 - 4 %) 0.9 Baso % (Auto) (0 - 2 %) 0.3 Plt Count, EDTA (150 - 400 K/uL) 564 PUBS MCHC (31 - 37 g/dL) 33 Microbiology Date/Time Procedure - Status Source Growth 11/08 1600 Fungal Culture - RECD ABDOMEN 11/08 1600 Fungal Smear - RECD ABDOMEN 11/08 1600 Anaerobic Culture - RES ABDOMEN 11/08 1600 Body Fluid Culture - RES ABDOMEN 11/08 1600 Gram Stain - RES ABDOMEN Assessment and Plan Problem List 1. Pneumonia Status Acute Onset Date Unknown Plan Clinically resolved. Will sign off of case. Discussed with Dr. Singh. Surgeons will contact us if other medical needs arise. 2. Anxiety Plan Controlled. 3. Tachycardia Plan Improved overall though pt mildly tachy last night with fever post drain manipulation.
[2016-11-09 14:17] VITALS: BP 118/66
[2016-11-09 22:26] VITALS: BP 118/57
[2016-11-10 06:32] VITALS: BP 123/66
[2016-11-10 14:34] VITALS: BP 117/67
[2016-11-10 21:51] VITALS: BP 131/69
[2016-11-11 06:55] VITALS: BP 114/69
[2016-11-11 14:20] VITALS: BP 121/77
[2016-11-12 00:29] VITALS: BP 115/71
[2016-11-12 06:25] VITALS: BP 123/66
[2016-11-12 14:35] VITALS: BP 123/66
--- NOTE | 2016-11-12 17:12 | DIAGNOSTIC IMAGING REPORT ---
PROCEDURE: US ABDOMEN ULTRASOUND-LIMITED INDICATION: Follow-up perisplenic and lower abdominal fluid collections. TECHNIQUE: Allen scale and color Doppler sonographic images of the left upper quadrant and lower central abdomen were obtained. COMPARISON: Comparison is made to abdominal ultrasound on 11/08/2016. FINDINGS: There is minimal residual fluid surrounding the lateral border of the spleen, this is unchanged since the prior study. There is a persistent 11 cm x7.8 cm x 3.3 cm area in the lower abdomen/upper pelvis which contains echogenic material and air with small amount of surrounding residual fluid. No change. IMPRESSION: 1. There is minimal residual fluid. The lateral spleen (no change). 2. There is no change in a 11 x 7.8 x 3.3 cm contained area in the lower abdomen/upper pelvis containing solid material (blood clot) and surrounding fluid. 3. Findings discussed with Dr. Blackwell.
[2016-11-12 22:43] VITALS: BP 117/62
[2016-11-13 09:18] VITALS: BP 112/74
[2016-11-13 18:52] VITALS: BP 124/72
[2016-11-14 04:33] VITALS: BP 126/81
[2016-11-14 11:13] VITALS: BP 126/68
[2016-11-14 16:31] VITALS: BP 127/72
[2016-11-14 22:20] VITALS: BP 123/68
[2016-11-15 06:56] VITALS: BP 113/68
[2016-11-15 14:02] VITALS: BP 124/77
[2016-11-15 22:38] VITALS: BP 138/76
[2016-11-16 07:05] VITALS: BP 147/82
--- NOTE | 2016-11-16 09:06 | DIAGNOSTIC IMAGING REPORT ---
PROCEDURE: XR ABDOMEN 1 VIEW UPRIGHT INDICATION: RULE OUT FREE AIR IN ABDOMEN;H/O GASTRIC LEAK 2 WKS AGO TECHNIQUE: AP upright view. COMPARISON: Upper GI 11/08/2016 FINDINGS: Left perisplenic drainage catheter in place. Left upper quadrant drains have been pulled. There is no evidence of free air. There are nonspecific air fluid levels throughout the abdomen. Cholecystectomy. Improved left basilar consolidation and pleural effusion. Mild right basilar atelectasis. Bones are unremarkable. IMPRESSION: 1. No evidence of free air 2. Left perisplenic drainage catheter in place 3. Improved left basilar consolidation and pleural effusion. 4. Results discussed with Dr. Blackwell
[2016-11-16] MEDS ORDERED: FLUCONAZOLE200 MG PO (09:10)
[2016-11-16] MEDS ORDERED: HYCET1 ML PO (09:10)
--- NOTE | 2016-11-16 09:12 | Provider's Discharge Care Plan ---
Problem, Goal, Plan Problem List 1. S/P LAPROSCOPIC REMOVAL OF ERODED GASTRIC BAND Goals: Improve function, Therapeutic intervention Instructions: Follow up as directed, Take meds as directed
[2016-11-16] MEDS ORDERED: PHENERGAN EQUIV25 M1 PR (09:14)
--- NOTE | 2016-11-17 01:53 | DISCHARGE SUMMARY ---
ADMIT DATE: 10/22/2016 DISCHARGE DATE: 11/16/2016 ADMITTING DIAGNOSIS: 1. Eroded Lap Band DISCHARGE DIAGNOSES: 1. Eroded Lap Band 2. Gastric leak 3. Intraabdominal abscess PROCEDURES PERFORMED: 1. Laparoscopic removal of eroded gastric lap band and closure. 2. Diagnostic laparoscopy with Lul patch of gastric leak. 3. CT guidance of drainage of intra-abdominal abscess 4. CT-guided irrigation and aspiration of abscess cavity INDICATIONS: A 46-year-old male with history of reflux, who 10 years prior had undergone a laparoscopic lap band placement in [place]. When he presented to [facility], he had an upper gastrointestinal series which showed an irregularity of the distal esophagus and reflux. The patient underwent an upper gastrointestinal endoscopy where it was noted that his lap band had eroded into his stomach. He was scheduled for a laparoscopic removal of the lap band. HOSPITAL COURSE: The patient was admitted to [facility] on 2015, taken to the operating room and underwent an uneventful laparoscopic removal of the eroded lap band from his stomach. The 2 gastrotomies from the removal of the lap band were closed without difficulty. The patient postoperatively was noted to complain of some mid abdominal discomfort. His urine output was down. His temperature was 99.5. He had minimal NG output. The trocar sites were dry. He was sore to palpation. The patient became tachycardic on postoperative day 1 and spiked a temperature to 101. His white count was normal. His electrolytes were normal. A CT with Gastrografin showed no evidence of leak. His nasogastric tube was discontinued. On postoperative day 2, the patient continued to have a pulse rate from 120-150. He would drop his O2 saturations with any type of activity, requiring 6 liters of O2 to maintain O2 saturation between 93 and 94. On postoperative day 2, his white count was 6.5. The patient was noted to have on chest x-ray, bilateral pleural effusions and possible early pneumonia. The patient underwent a Gastrografin upper GI series which showed a leak of the gastric material from the stomach. In retrospect, the first CT done on postoperative day 1, the leak was there as well. The patient was returned to the operating room where he underwent a diagnostic laparoscopy, irrigation of the abdominal cavity and multiple drains placed around the area of the hiatus and fundus of the stomach. A small leak was detected and was treated with a Lul patch. Postoperative day 3/1, white count was 10.7. Postoperative day 4/2, his white count was 9.8. The Mendez-Carrillo drains were putting out 34 and 61 mL of serous fluid respectively and nasogastric tube was putting out 810 mL. Postoperative day 7/, the patient's white count jumped to 21,000 and he began experiencing diarrhea. Postoperative day 8/, he was not complaining of any nausea, any shortness of breath, still having multiple mucoid stools, serous drainage from his Mendez-Carrillo drains. His abdomen was soft to palpation. White count remained elevated at 22.3. On postoperative day 8/, repeat CT of his abdomen and pelvis with IV contrast and oral contrast indicated the patient still had a small contained leak at the previous site of leakage and a 9 x 3 cm posterior splenic fluid collection and a 13 cm pelvic fluid collection. This was eventually drained by radiology and drains placed in that area. Eventually, the cultures from the pelvis grew nothing. It was confirmed the pelvic fluid collection was a hematoma seroma. The abscess cavity around the spleen eventually grew out [place] albicans. The patient's NG tube was kept in position. He was started on TPN. On postoperative day 09/12, white count was 16.8, Mendez-Carrillo drain outputs, A, B, C, and D put out 11, 5, 75, and 68 respectively, but it should be noted that drain C and D were being irrigated with 15 mL per day each. The patient's postoperative day 16/08, white count 16.2. The patient was returned to radiology where he underwent aspiration and irrigation of the perisplenic fluid collection. This was performed on postoperative day . The perisplenic cavity was collapsed. The patient on postoperative day , after having his NG tube discontinued, was started on sips of clear liquids. On postoperative day , his white count was 8.1, hemoglobin and hematocrit 10.8 and 33.3 respectively. The patient was passing flatus and having bowel movements. He was started on a clear liquid diet , which he tolerated. On postoperative day , he was switched over from fluconazole IV to oral fluconazole 400 mg daily. He remained stable. On postoperative day , upright abdominal x-ray showed no free air in the diaphragm and his white count was 9.4. Condition at time of discharge, blood pressure 138/76, pulse 99, respirations 20 , temperature 98.4. The patient's abdomen was minimally distended. Positive bowel sounds. His Mendez-Carrillo drain, having been removed earlier in his hospitalization, only had one and that was in the area of the perisplenic region and it had put out 20 mL over the previous 24 hours. The patient was ambulatory, tolerating clear liquids. No abdominal discomfort. No chest discomfort. DISCHARGE INSTRUCTIONS/MEDICATIONS: He was discharged home with instructions to follow up with [facility] in 1 week. He was discharged on Phenergan suppository 25 mg q.6 hours p.r.n. nausea, Hycet elixir 1 tablespoon q.6 hours p.r.n. pain and fluconazole 400 mg daily.
== END 2016-11-16 16:40 | disposition home or self-care (01) | DRG 220 ==
LOC: ACUTE2 SRH 10-22 06:40 → SCU SRH 10-22 06:40 → U SRH 10-22 08:30 → ACUTE2 SRH 10-22 13:38
PROVIDERS: ADMIT Specialist
PROC: 0DU647Z Supplement Stomach with Autologous Tissue Substitute, Percutaneous Endoscopic Approach (ICD-10-PCS; principal; 2016-10-22 08:30)
PROC: 0DP64CZ Removal of Extraluminal Device from Stomach, Percutaneous Endoscopic Approach (ICD-10-PCS; principal; 2016-10-22 08:30)
PROC: 3E0336Z Introduction of Nutritional Substance into Peripheral Vein, Percutaneous Approach (ICD-10-PCS; 2016-10-25)
PROC: 02HV33Z Insertion of Infusion Device into Superior Vena Cava, Percutaneous Approach (ICD-10-PCS; 2016-10-25)
PROC: 0DJ08ZZ Inspection of Upper Intestinal Tract, Via Natural or Artificial Opening Endoscopic (ICD-10-PCS; 2016-10-31)
PROC: 0W9G4ZZ Drainage of Peritoneal Cavity, Percutaneous Endoscopic Approach (ICD-10-PCS; 2016-10-31)
PROC: 0W9G30Z Drainage of Peritoneal Cavity with Drainage Device, Percutaneous Approach (ICD-10-PCS; 2016-10-31)
DX: K95.09 Other complications of gastric band procedure (principal); K25.5 Chronic or unspecified gastric ulcer with perforation; K65.1 Peritoneal abscess; J18.9 Pneumonia, unspecified organism; K91.870 Postprocedural hematoma of a digestive system organ or structure following a digestive system procedure; R19.7 Diarrhea, unspecified; R73.9 Hyperglycemia, unspecified; F41.9 Anxiety disorder, unspecified
CPT/HCPCS: 50002; 60001; 70002; 80102; 80212; 80248; 80298; 80852; 80991; 81144; 81310; 81805; 81851; 82284; 82385; 82445; 82541; 82588; 82589; 82669; 82672; 82707; 82794; 82897; 83197; 83338; 83463; 83475; 83587; 83919; 83920; 83982; 84038; 84044; 85420; 85447; 85490; 90001; 90004; 90047; 90069; 90070; 90074; 90098; 90100; 90101; 90112; 90124; 90131; 90133; 90155; 90309; 90455; 90470; 91004; 91162; 91163; 91295; 91556; 91643; 92031; 92235; 92503; 92720; 92740; 93004; 94113; 95029; 95030; 95059; 95061; 99262; 99784

== ENCOUNTER 2016-11-22 13:47 | Outpatient (CLI) | payer OTHER ==
[~2016-11-22 13:47] MED LIST changes: +FLUCONAZOLE200 MG PO; +HYCET1 ML PO; +PHENERGAN EQUIV25 M1 PR
--- NOTE | 2016-11-22 16:17 | DIAGNOSTIC IMAGING REPORT ---
PROCEDURE: US ABDOMEN ULTRASOUND-LIMITED INDICATION: Follow-up perisplenic fluid collection. Left upper quadrant drain TECHNIQUE: Allen scale and color Doppler sonographic images of the abdomen were obtained. Dr. Blackwell in attendance. COMPARISON: Comparison is made to abdominal ultrasound 11/12/2016. FINDINGS: There is no evidence of significant perisplenic fluid collection. This was discussed with Dr. Blackwell who requests at the 10-Malaysian cope loop drainage tube be removed. The 10-Malaysian drainage tube was severed and removed. The wound was scrubbed with antiseptic substance (Chloraprep) and dressed with gauze and Tegaderm. The patient was instructed to call for any untoward symptoms. IMPRESSION: 1. No evidence of significant perisplenic fluid. Because of this, the left upper quadrant drainage tube was removed (at the request of Dr. Blackwell).
--- NOTE | 2016-11-22 16:17 | DIAGNOSTIC IMAGING REPORT ---
PROCEDURE: US ABDOMEN ULTRASOUND-LIMITED INDICATION: Follow-up perisplenic fluid collection. Left upper quadrant drain TECHNIQUE: Allen scale and color Doppler sonographic images of the abdomen were obtained. Dr. Blackwell in attendance. COMPARISON: Comparison is made to abdominal ultrasound 11/12/2016. FINDINGS: There is no evidence of significant perisplenic fluid collection. This was discussed with Dr. Blackwell who requests at the 10-Mexican cope loop drainage tube be removed. The 10-Mexican drainage tube was severed and removed. The wound was scrubbed with antiseptic substance (Chloraprep) and dressed with gauze and Tegaderm. The patient was instructed to call for any untoward symptoms. IMPRESSION: 1. No evidence of significant perisplenic fluid. Because of this, the left upper quadrant drainage tube was removed (at the request of Dr. Blackwell).
== END 2016-11-22 23:00 ==
LOC: US SRH 13:47 → LAB SRH 13:47 → US SRH 14:00
DX: Z48.03 Encounter for change or removal of drains (principal); Z98.84 Bariatric surgery status
CPT/HCPCS: 90074; 95059

== ENCOUNTER 2016-11-27 09:35 | Outpatient (CLI) | payer OTHER | END 2016-11-27 23:00 | LOC: LAB SRH 09:35 | DX: K95.09 Other complications of gastric band procedure (principal) | CPT/HCPCS: 90074; 95059 ==

== ENCOUNTER 2017-04-11 16:08 | Outpatient (CLI) | payer OTHER ==
--- NOTE | 2017-04-11 16:40 | DIAGNOSTIC IMAGING REPORT ---
PROCEDURE: XR LUMBAR SPINE 2 OR 3 VIEWS INDICATION: RADICULOPATHY TECHNIQUE: Three views of the lumbar spine COMPARISON: None. FINDINGS: Five lumbar-type vertebral bodies are present. Normal vertebral body height without fracture. Normal AP and transverse alignment. Moderate degenerative disc space loss at L5-S1. Moderate facet spurring at L4-5 and L5- S1. The visible osseous pelvis and bowel gas pattern are normal. Surgical clips in the gallbladder fossa. IMPRESSION: 1. Intact lumbar spine. 2. Moderate facet and disc degeneration in the lower lumbar spine as described. These findings appear chronic.
== END 2017-04-11 23:00 ==
LOC: XR SRH 16:08
DX: M51.36 Other intervertebral disc degeneration, lumbar region (principal)

== ENCOUNTER 2017-04-12 13:25 | Outpatient (CLI) | payer OTHER ==
--- NOTE | 2017-04-12 15:27 | DIAGNOSTIC IMAGING REPORT ---
PROCEDURE: MR LUMBAR SPINE W/O CONTRAST INDICATION: RIGHT SCIATICA, LOW BACK PAIN TECHNIQUE: Noncontrast T1, T2, and STIR sagittal images. T1 and T2 axial images. COMPARISON: None. FINDINGS: L1-2: Normal. L2-3: Normal. L3-4: Normal. L4-5: Normal. L5-S1: Herniated nucleus pulposus on the right. There is compression of the nerve root on the right and the thecal sac. The herniated disc is confined to the level of the disc space. IMPRESSION: 1. Herniated nucleus pulposus L5-S1 on the right.
== END 2017-04-12 23:00 | disposition home or self-care (01) ==
LOC: MRI SRH 13:25
DX: M51.27 Other intervertebral disc displacement, lumbosacral region (principal)